=== PATIENT | male | born 1945 | race Caucasian/White ===

== ENCOUNTER 2016-03-11 06:30 | Inpatient (IN) | payer MEDICARE, BC ==
--- NOTE | ~2016-03-11 | CO ---
Unit #: [id number] #: [id number] Patient: PHIL SNELL [id number] [place] [id number] [facility]. [place], [place] [address] [id number] I MR#: [id number] NAME: PHIL SNELL ROOM: 333 Age: 70 Sex: M Admission Date: 03/11/2016 : 1945 Attending Physician: Caroline Amador M.D. Primary Care Physician: Guillaume Mancilla M.D. Consultation Date: 03/11/2016 CONSULTATION REPORT JOB NOTE: VERIFY DOS. REASON FOR CONSULTATION Abnormal TSH, abnormal thyroid function test. HISTORY OF PRESENT ILLNESS This is a 70-year-old male with history of multiple medical problems including paroxysmal atrial fibrillation, coronary artery disease plus CABG, chronic kidney disease, left below-knee amputation. The patient had femoral tibial artery bypass in 12/2015 at [facility]. His postoperative course was complicated by the respiratory failure requiring intubation and mechanical ventilation. He eventually was discharged secondary to very large decubitus ulcers. He finally underwent the left below-knee amputation and eventually transferred to the [facility] only 2 to 3 days ago. He has presented to the emergency room with the change in mental status and confusion. On his labs, he was found to have the TSH level of 37. According to the medical records, the patient at some point was taking 150 mcg of levothyroxine daily which was increased to 200 mcg at some point. On his current medication list from [facility], shows that he is on levothyroxine 200 mcg daily, but it is not known that when this dose was changed. The patient is unable to provide further history. PAST MEDICAL HISTORY See HPI. CURRENT MEDICATIONS List from [facility] is reviewed and the patient is on Synthroid 200 mcg daily. ALLERGIES To sulfa and Zetia. FAMILY HISTORY Coronary artery disease and diabetes. REVIEW OF SYSTEMS Completed. Please see HPI. Otherwise, unremarkable. PHYSICAL EXAMINATION GENERAL: He is comfortable, in no acute distress. VITAL SIGNS: He is afebrile. Blood pressure is 140/73, his pulse is 83. HEENT: Pupils are equally reactive to light. NECK: He has a trach in place. Unit #: [id number] #: [id number] Patient: PHIL SNELL CHEST: Decreased air entry. CVS: Normal sinus rhythm. ABDOMEN: Obese. Bowel sounds positive. EXTREMITIES: He has left BKA. DIAGNOSTIC STUDIES LABORATORY RESULTS: His TSH is 37.9. ASSESSMENT 1. Primary hypothyroidism. 2. History of coronary artery disease plus coronary artery bypass grafting. 3. History of paroxysmal atrial fibrillation. 4. Sacral decubitus. PLAN I am going to increase the levothyroxine dose to 225 mcg daily and we will recheck the labs in 4 to 6 weeks to further adjust the medication and the dose. Thank you again for consultation. Dictated by... Katerin Buenrostro/rachel TD: 03/11/2016 20:50 JOB #: [id number] CONSULTATION REPORT X Yun Dominguez MD X CONSULTATION REPORT
--- NOTE | ~2016-03-11 | TOC ---
Unit #: [id number] #: [id number] Patient: PHIL SNELL [id number] [address] [address] [id number] I MR#: [id number] NAME: PHIL SNELL ROOM: 55 Age: 70 Sex: M Admission Date: 03/11/2016 : 1945 Attending Physician: Enmanuel Mcgowan M.D. Primary Care Physician: Guillaume Mancilla M.D. TRANSFER OF CARE SUMMARY PRINCIPAL DIAGNOSES 1. Stage IV sacral decubitus ulcer, status post debridement x2 and subsequent wound VAC placement. 2. Toxic metabolic encephalopathy, multifactorial. 3. Acute kidney injury on chronic kidney disease stage 3 with baseline creatinine of 1.3. 4. Acute on chronic hypoxic hypercapnic respiratory failure, maintained on 3 L of oxygen per nasal cannula continuously. 5. Acute on chronic diastolic congestive heart failure, ejection fraction I believe 55%. 6. Subdural hydroma. 7. Severe hypothyroidism with thyroid stimulating hormone of 47, most recent thyroid stimulating hormone down to 26. 8. Acute on chronic anemia. 9. Severe protein malnutrition. 10. Diabetes mellitus type 2. 11. Peripheral arterial disease. 12. Hypernatremia. 13. Hypertension. 14. Pseudomonas urinary tract infection, status post treatment. 15. Nonsustained ventricular tachycardia. 16. Chronic immobility. 17. Obesity. 18. Obstructive sleep apnea, noncompliant with CPAP. 19. History of left lower extremity deep venous thrombosis. 20. Paroxysmal atrial fibrillation. 21. Supratherapeutic international normalized ratio, now resolved. 22. Coronary artery disease. 23. Benign prostatic hypertrophy. 24. Right foot decubitus ulcer. CONSULTANTS 1. Dr. Sim, Vascular Surgery. 2. Dr. Dominguez, Endocrinology. 3. Dr. Howell, LSA. 4. Dr. Morales, Cardiology. 5. Dr. Watts, Neurology. 6. Dr. Ramos, Pulmonology. 7. Dr. Sanderson, Nephrology. PROCEDURES 1. Wide sacral debridement and diverting colostomy on March 13, 2016. 2. Debridement of large necrotic sacral decubitus ulcer down to sacrum with mild necrosis and additional fatty necrosis on March 25, 2016. Unit #: [id number] #: [id number] Patient: PHIL SNELL 3. CT of the head without contrast on March 11, 2016 with subdural fluid collections over the right and left frontal parietal convexities. No focal abnormalities. 4. CT of the head without contrast on March 12, 2106, with no interval change. 5. Multiple followup chest x-rays demonstrating cardiomegaly and some pleural thickening on the right. CLINICAL HISTORY AND HOSPITAL COURSE Mr. Snell is a 70-year-old male with multiple chronic medical conditions, who was sent from rehab due to increasing confusion. In the emergency department, the patient was found to have a large sacral decubitus ulcer which had been ongoing in addition to a right foot decubitus ulcer. In the emergency department, the patient was found to have a hemoglobin of 8.4 and a creatinine of 1.4. INR was elevated at 7.6. The patient was subsequently admitted. In regard to patient's supratherapeutic INR, he was given vitamin K and INR normalized. He has remained off Coumadin. In regard to patient's large sacral decubitus ulcer, LSA was consulted. Wound swabs ultimately revealed Pseudomonas aeruginosa and patient has completed treatment. The patient underwent debridement and diverting colostomy on March 13, but unfortunately had worsening of the wound despite aggressive wound care and underwent second debridement on March 25. The wound itself has continually appeared progressively necrotic and patient had wound VAC placed on March 27, 2016 and is currently being followed by wound care. Please see below. Preoperatively, patient was seen by cardiology for evaluation. He had clinically appeared stable initially but subsequently developed some significant pulmonary edema consistent with an acute on chronic diastolic heart failure. He was placed on diuretics. Renal function also suffered as a result and Dr. Sanderson was consulted. Following patient's initial surgery, he did require mechanical ventilation for several days for which Dr. Ramos was consulted. Fortunately, the patient has been removed from the ventilator. I will note he did have a tracheostomy prior to the surgery which was removed but unfortunately has not required repeat trach placement. Respiratory status had returned to baseline which is 3 L of oxygen per nasal cannula continuously. His diastolic congestive heart failure is resolved and renal function has also returned to normal. The patient has had progressive significant decline functionally and mentally since his second surgery. He remains persistently delirious, has minimal oral intake, and has significant protein malnutrition both before and after surgery. His wound has also become increasingly necrotic. I have discussed this with the patient's on several occasions and I think patient would best be served by hospice given the extensive large necrotic appearance of his wounds and his multiple associated chronic conditions. is currently discussing with family. Currently, waiting decision per family. The patient also had significant uncontrolled hypothyroidism and he has been placed on supplemental. He needs a TSH in six weeks if plan is aggressive care. The patient was also seen by vascular surgery given he recently had a left hlurw-ncb-qzes amputation, seen by Dr. Sim but there are no plans for further treatment and/or evaluation at this time, just local wound care. Unit #: [id number] #: [id number] Patient: PHIL SNELL [facility] course will be dictated as an addendum; however, I will note patient's prognosis is very poor. Dictated by... Hyun Craig M.D. JACINTA/bob TD: 03/31/2016 09:13 JOB #: [id number] TRANSFER OF CARE SUMMARY X Hyun Craig MD TRANSFER OF CARE SUMMARY
--- NOTE | ~2016-03-11 | FU ---
[facility] Nutrition Therapy DATE: 04/07/16 Patient: PHIL CHANNING Physician: COTY Address: [address] [facility] [address] Room/Bed: [address] [place] [address], Zip: [place] [address] Admit Date: 03/11/16 Date of : [birth year] Height: 6 1 Weight: 275 125.1 NUTRITION MONITORING/FOLLOW-UP: Reason: PT SEEN FOR FOLLOW-UP DX: AMS, DECUBITUS Anthropometrics: 6'1", WT: 275# (125 KG), BMI: 36.3 Labs: GLU: 135, BUN: 69, CREAT: 1.7, CA+:8.1, GFR: 42.6, K+:5.5 Meds: NACL, NOVOLOG, PROTONIX, SYNTHROID, ZOFRAN, FERROUS GLUCONATE I&O's: 1929/2725, 1 BM NOTED Skin: STAGE IV SACRAL WOUND-WOUND VAC IN PLACE Estimated Nutrition Needs: INCREASED NUTRIENT NEEDS 2' NECROTIC WOUND NOTED Assessment: CHART REVIEWED AND EVENTS NOTED. PT SEEN FOR FOLLOW-UP. PT ASLEEP AT TIME OF VISIT. RD SPOKE TO FAMILY AND RN. FAMILY REPORT PT ATE 100% BREAKFAST THIS AM. RN REPORTS PT'S PO INTAKE AND APPETITE HAS BEEN "GOOD" PAST SEVERAL DAYS. FAMILY ADD THAT PT LIKES THE MAGIC CUPS. RD ENCOURAGED ADEQUATE KCAL, PROTEIN AND FLUID INTAKE, PT AGREED. FAMILY REPORTED NO DIET QUESTIONS AT THIS TIME. PER MD NOTES, PROGNOSIS CONTINUES TO BE POOR. Dx: INCREASED NUTRIENT NEEDS R/T CURRENT CONDITION AEB NECROTIC WOUND NOTED Intervention: 1. CC+HH DIET 2. MAGIC CUP TID W/MEALS 3. VITAMIN C 500 MG BID + 220 MG ZINC X 10 DAYS (ORAL) Monitoring, Evaluation and Goals: GOALS MET 1. PO INTAKE; PROMOTE >50% OF MEALS AND SUPPLEMENTS 2. SKIN; PROMOTE WOUND HEALING 3. LABS; WNL MONITOR: -PO INTAKE/APPETITE -SUPPLEMENT INTAKE -WEIGHTS -SKIN HEALING Recommendations: 1. ORDER 500 MG VITAMIN C BID + 220 MG ZINC X 10 DAYS TO PROMOTE WOUND HEALING [facility] Nutrition Therapy DATE: 04/07/16 Patient: PHIL SNELL Physician: COTY Address: [address] [facility] 86 Room/Bed: [address] [place] [address], Zip: [place] [address] Admit Date: 03/11/16 Date of : [birth year] Height: 6 1 Weight: 275 125.1 2. CONTINUE TO ENCOURAGE ADEQUATE KCAL, PROTEIN AND FLUID INTAKE RD WILL F/U PER PROTOCOL PT IS MOD/SEVERELY COMPROMISED Respectfully, YUDELKA GAR MS, RD, LD [facility] and Nutritional Services [facility] cc: client file
--- NOTE | ~2016-03-11 | FU ---
[facility] Nutrition Therapy DATE: 03/14/16 Patient: PHIL SNELL Physician: COTY Address: [address] Room/Bed: [address], Zip: [place] [address] Admit Date: 03/11/16 Date of : [birth year] Height: 6 1 Weight: 294 133.5 NUTRITION MONITORING/FOLLOW-UP: Reason: NPO status in ICU/ follow up Anthropometrics: Ht: 6'1" Adm wt: 133.5 kg BMI: 38.8 Wt 2/3: 133.5 kg Labs: Gluc 131 BUN 32 Creat 1.5 Ca++ 7.8 Alb 1.7 Mg++ 1.5 Accuchecks 120 GFR 49.2 BNP 4812 Meds: Protonix, synthroid (IV), novolog, D5%, versed, fentanyl, zofran, furosemide, levaquin (IV), ferrous gluconate I&O's: 2351/419, last BM 03/13 Skin: Trach stoma New ostomy stoma LLQ Decubitus ulcer left and right buttock Edema: Generalized BUE/ BLE Pitting right foot Estimated Nutrition Needs: 6695-5560 kcals (12-15 kcals/kg ABW) 125-167 grams protein (1.5-2.0 grams/kg IBW) Assessment: Chart reviewed, events noted. Pt's trach was removed, and he is now intubated in the ICU. Pt's POD#1 colostomy placement/ formation due to his sacral decubitus ulcer. Wean trial will likely be attempted today. Per MD note, if the pt does not wean, will need to place a DHT and start enteral nutrition. Please note the pt has significant increased protein needs for wound healing. RD will provide enteral nutrition recommendations below. RD previously assessed the pt on 3A and ordered Glucerna supplements, as he was consuming ~30-40% of meals. RD will continue to follow. Dx: Inadequate oral intake RT inability to consume nutrition PO AEB intubated, NPO status. Intervention: 1. Enteral nutrition if the pt remains intubated 2. Resume diet if the pt is extubated Monitoring, Evaluation and Goals: 1. Enteral nutrition; provide minimum 80% of the pt's nutrient needs [facility] Nutrition Therapy DATE: 03/14/16 Patient: PHIL SNELL Physician: COTY Address: [address] Room/Bed: [address], Zip: [place] Admit Date: 03/11/16 Date of : [birth year] Height: 6 1 Weight: 294 133.5 2. Labs; WNL 3. Weight; prevent unintentional weight loss 4. Skin; promote healing 5. GI; promote regular GI function Recommendations: 1. If the pt remains intubated, obtain enteral access and initiate enteral nutrition with Glucerna 1.5 @ 20 mL/hr +30 mL Prostat BID. Increase by 10 mL q 8 hrs as tolerated to goal of 50 mL/hr + 30 mL Prostat BID to provide: 2000 kcals/ 129 grams protein/ 911 mL free H20 Recommend 180 mL free H20 flushes q 4 hrs or per MD orders (Pt was previously on a 2000 mL fluid restriction) 2. If the pt is extubated, recommend COMPRESSION MOLDING MACHINE OPERATOR evaluation to determine if the pt can safely tolerate PO intake. Advance diet per COMPRESSION MOLDING MACHINE OPERATOR recommendations + heart healthy/ consistent carbohydrate restrictions. Please note, the pt was previously on a fluid restriction per MD orders. Status: Pt is at moderate-severe nutritional risk. Respectfully, ERICH SKINNER RD, LD Food and Nutritional Services [facility] cc: client file
--- NOTE | ~2016-03-11 | CR72 ---
[facility] A Service of [facility] & [facility] RADIOLOGY TEXT RESULTS PATIENT: PHIL SNELL LOCATION: [address] : [birth year] UNIT #: [id number] AGE: [address]: Hyun Craig MD SEX: M ORDER DR: [id number] [facility] [address] [facility]. [place], [place] [address] [id number] I MR#: [id number] Acc #: [id number] NAME: PHIL SNELL : 1945 SEX: M STUDY DATE/TIME: 03/18/2016 3:21 UNIT: [facility] ROOM: [facility] STUDY DESCRIPTION: CR Chest Single View Portable Attending Physician: Hyun Craig M.D. Ordering Physician: Sherry aRmos M.D. Primary Care Physician: Guillaume Mancilla M.D. MEDICAL IMAGING REPORT This report is preliminary unless electronic signature is present EXAM Portable chest 03/18 INDICATIONS Respiratory failure. FINDINGS AP portable chest is compared with 03/17/2016. Endotracheal tube appears to be near the thoracic inlet level. Consider advancing the tube about 3 cm. There is a persistent small right pleural effusion which may be minimally larger. There is some continued infiltrate in the right dgm-gd-hpsmd lung. The left lung is nearly completely clear except some atelectasis behind the heart. No pneumothorax. Right arm PICC remains in the right axillary vein. Dictated by... Fede Watson Jr., M.D. THIS IS AN ELECTRONICALLY VERIFIED REPORT Fede Watson Jr., M.D. at 03/18/2016 12:31 PM SKYE/camila TD: 03/18/2016 08:16 JOB #: [id number] MEDICAL IMAGING REPORT COPY
--- NOTE | ~2016-03-11 | CT71 ---
[facility] A Service of [facility] & [facility] RADIOLOGY TEXT RESULTS PATIENT: PHIL SNELL LOCATION: [facility] : [birth year] UNIT #: [id number] AGE: [address]: Darrin Espinoza MD SEX: M ORDER DR: [id number] [facility] [address] [place], [place] [address] [id number] MR#: [id number] Acc #: [id number] NAME: PHIL SNELL : 1945 SEX: M STUDY DATE/TIME: 03/11/2016 7:38 UNIT: [facility] ROOM: STUDY DESCRIPTION: CT Head Wo Contrast Attending Physician: Darrin Espinoza M.D. Ordering Physician: Darrin Espinoza M.D. Primary Care Physician: Guillaume Mancilla M.D. MEDICAL IMAGING REPORT This report is preliminary unless electronic signature is present EXAM CT brain without contrast media HISTORY Increased confusion and shortness of breath this morning. History of coronary artery disease, hypertension, diabetes and prior bypass. TECHNIQUE Transaxial imaging of the brain was performed without contrast media. This CT exam was performed with one or more of the following radiation dose reduction techniques: automatic exposure control, adjustment of mA and/or kV according to patient size, and iterative reconstruction. COMPARISON Head CT dated January 02, 2016 FINDINGS The patient has fluid collections over both the right and left cerebral convexities primarily in the frontal regions. This is present on the last scan. It has not changed. The lateral ventricles appear smaller and there continues to be effacement of the cortical sulci over both the right and left cerebral hemispheres. I do not see any other mass lesions or mass effect. There is no hemorrhage or edema. The patient does have atherosclerotic disease in the vertebral arteries and carotid siphons bilaterally. CONCLUSION Subdural fluid collections over both the right and left frontoparietal convexities. These are present on the patient's study of 01/01/2016 and have been present in the past. There is however evidence of sulcal effacement and the lateral ventricles have decreased in size from the last study suggesting there is some mass effect present. No other focal STS. [facility] A Service of [facility] & [facility] RADIOLOGY TEXT RESULTS PATIENT: PHIL SNELL LOCATION: [facility] : [birth year] UNIT #: [id number] AGE: [address]: Darrin Espinoza MD SEX: M ORDER DR: abnormalities are identified within the brain or surrounding structures. Incidental note is made of chronic ethmoid sinus disease on the left. Dictated by... Phil Griffin M.D. THIS IS AN ELECTRONICALLY VERIFIED REPORT Phil Griffin M.D. at 03/11/2016 4:15 PM Melia TD: 03/11/2016 11:16 JOB #: [id number] MEDICAL IMAGING REPORT COPY
--- NOTE | ~2016-03-11 | DS ---
Unit #: [id number] #: [id number] Patient: PHIL SNELL [id number] [address] [place], [place] [address] [id number] MR#: [id number] NAME: PHIL SNELL ROOM: 239 Age: 70 Sex: M Admission Date: 03/11/2016 : 1945 Discharge Date: 04/10/2016 Attending Physician: Hyun Craig M.D. Primary Care Physician: Guillaume Mancilla M.D. DISCHARGE SUMMARY ADDENDUM ADDITIONAL DISCHARGE DIAGNOSES 1. Enterococcus bacteremia. Currently on antibiotic therapy. 2. Yeast urinary tract infection. 3. Persistent delirium. 4. Chronic kidney disease, stage 3, baseline creatinine approximately 1.5. 5. Severe protein malnutrition. Last prealbumin 6 on 04/08/2016. HOSPITAL COURSE Since last dictation, the patient clinically really has not had any change in status. I personally reviewed his wound on 04/07/2016 and it appears to be increasing in size and only has about 50% granulation. He is having increasing necrotic skin on the periphery and this likely will extend to the rectum. Discussions regarding replacement of wound VAC and doing repeated daily dressings was discussed with the patient's , who does not want to put him through that pain and, thus, he has been placed back on the wound VAC. The patient's protein status also remains significantly poor and I have told the that I do not think this wound will ever heal. She states, however, she wants to keep with the wound VAC and aggressive care of this wound. The patient has been stable since identification of the enterococcus bacteremia and completed a two-week course of antibiotics as outlined below. The patient did have some mild leukocytosis and was found to have yeast in his urine. I placed him on Diflucan which we will treat for one week. I will exchange his Rogel today prior to transfer to [place]. Continued discussions with family regarding goals of care and at this point they continue to want the patient full code and want all aggressive measures for the wound, which is very high risk for osteomyelitis and honestly is most likely the source of his bacteremia. The patient's long-term prognosis is poor. Please note again, the patient has a history of paroxysmal atrial fibrillation, but remained at this facility over a month and has remained in normal sinus rhythm. He has also had bleeding from the wound, requiring transfusion. I am not going to reinitiate Coumadin at this time. I am also not going to reinitiate aspirin. He has been on SCDs only for DVT prophylaxis. Unit #: [id number] #: [id number] Patient: PHIL SNELL DISCHARGE CONDITION Chronically ill. DISPOSITION Transfer to [facility] in [place]. DISCHARGE MEDICATIONS 1. Combivent nebulizer treatments 3 ml q.4 h. p.r.n. shortness of breath. 2. Tylenol 650 mg p.o. q.6 h. p.r.n. fever. 3. Neurontin 300 mg p.o. t.i.d. 4. Diflucan 100 mg p.o. daily, to stop after dose on 04/13/2016. 5. Norvasc 5 mg daily. 6. Metoprolol tartrate 25 mg b.i.d. 7. Lasix 20 mg b.i.d. 8. NovoLog medium dose sliding scale with meals. 9. Santyl ointment topically daily at 6 a.m. on the patient's right foot. 10. Orazinc 220 mg daily. 11. Florastor 250 mg b.i.d. 12. Frankenmuth 10/325 mg 1 tablet q.8 h. 13. Protonix 40 mg daily. 14. Levothyroxine 225 mcg p.o. daily. 15. Ascorbic acid 500 mg b.i.d. 16. Ampicillin 2 g IV q.6 h. to stop after doses on 04/14/2016. DISCHARGE INSTRUCTIONS 1. The patient will continue Accu-Cheks morning and evening with associated sliding scale. 2. The patient is essentially immobile, hence his sacral wound, but he can attempt therapy. 3. His current wound VAC is being changed every two days at this facility, and further wound orders per attending physician at [facility]. 4. The patient's current diet is regular, given his significant protein malnutrition with associated Ensure shakes. FOLLOWUP 1. The patient need follow-up TSH in six weeks, given he had significant hypothyroidism upon presentation. 2. Continue to follow up wound at facility. Time spent on discharge was 33 minutes. Dictated by... Hyun Craig M.D. JACINTA/inge TD: 04/10/2016 08:40 JOB #: [id number] Unit #: [id number] #: [id number] Patient: PHIL SNELL DISCHARGE SUMMARY X Hyun Craig MD X DISCHARGE SUMMARY
--- NOTE | ~2016-03-11 | CR72 ---
[facility] A Service of [facility] & [facility] RADIOLOGY TEXT RESULTS PATIENT: PHIL SNELL LOCATION: [address]-19 : [birth year] UNIT #: [id number] AGE: [address]: Hyun Craig MD SEX: M ORDER DR: [id number] [facility] [address] [facility]. [place], [place] [address] [id number] I MR#: [id number] Acc #: [id number] NAME: PHIL SNELL : 1945 SEX: M STUDY DATE/TIME: 03/14/2016 5:40 UNIT: [facility] ROOM: [facility] STUDY DESCRIPTION: CR Chest Single View Portable Attending Physician: Hyun Craig M.D. Ordering Physician: Sherry Ramos M.D. Primary Care Physician: Guillaume Mancilla M.D. MEDICAL IMAGING REPORT This report is preliminary unless electronic signature is present EXAM Portable chest x-ray 03/14/2016 HISTORY Intubation. Right pleural effusion. FINDINGS AP radiographs of the chest are presented. Comparison 03/13/2016. The endotracheal tube terminates approximately 6.3 cm above the sophia at the T2 vertebral body inferior endplate level. Slightly more cephalad than on prior examination. For placement in mid thoracic trachea, it could be advanced about 2 cm and reassessed radiographically. Status post median sternotomy. Stable cardiac silhouette. No significant change in appearance of the lungs. Pulmonary vascular prominence suggesting vascular congestion. Interstitial and airspace densities bilaterally more pronounced in the mwh-ht-pieow lung zones with small right pleural effusion. The appearance favors pulmonary edema. Components of pneumonia not excluded. No pneumothorax. IMPRESSION 1. No significant change in appearance of the lungs. Underlying pulmonary vascular congestion with associated interstitial and airspace densities, predominantly in perihilar and qxl-ai-wrojk lung zones bilaterally and symmetrically. Appearance favors pulmonary edema probably of cardiogenic etiology. Components of pneumonia not excluded. Small right pleural effusion. 2. Endotracheal tube terminates about 6.3 cm above the sophia. Slightly more cephalad than on prior examination. For placement in mid thoracic trachea, it could be advanced about 2 cm and reassessed radiographically. [facility] A Service of [facility] & [facility] RADIOLOGY TEXT RESULTS PATIENT: PHIL SNELL [facility] UNIT #: [id number] AGE: [address]: Hyun Craig MD SEX: M ORDER DR: Dictated by... Phil Kraft M.D. THIS IS AN ELECTRONICALLY VERIFIED REPORT Phil Kraft M.D. at 03/14/2016 4:34 PM Roge TD: 03/14/2016 08:57 JOB #: [id number] MEDICAL IMAGING REPORT COPY
--- NOTE | ~2016-03-11 | FU ---
[facility] Nutrition Therapy DATE: 03/21/16 Patient: PHIL SNELL Physician: COTY Address: [address] Room/Bed: [address] [place] [address], Zip: [place] [address] Admit Date: 03/11/16 Date of : [birth year] Height: 6 1 Weight: 276 125.5 NUTRITION MONITORING/FOLLOW-UP: Reason: PT SEEN FOR FOLLOW-UP DX: AMS, DECUBITUS Anthropometrics: 6'1", WT: 276# (125 KG), BMI: 36.4 -ADMIT WEIGHT: 292# (133 KG) Labs: GLU: 235, BUN: 56, CREAT: 1.6, ALB: 2.1, GFR: 45.6, NA+:150 Meds: PROTONIX, SYNTHROID, ZOFRAN, FERROUS GLUCONATE I&O's: 1705/9998 Skin: SACRAL DECUBITUS ULCER; (R) FOOT/LOWER LEG UNSTAGEABLE PRESSURE ULCER EDEMA: BILATERAL HANDS/ARMS GENERALIZED EDEMA; TORSO GENERALIZED EDEMA Estimated Nutrition Needs: [id number] KCAL 125-167 G PRO Assessment: CHART REVIEWED AND EVENTS NOTED. PT SEEN FOR FOLLOW-UP. PT NON-VERBAL/SLEEPY/LETHARGIC AT TIME OF VISIT. RD ATTEMPTED TO SPEAK TO PT. PT HAD LUNCH TRAY AT BEDSIDE-TRAY HAS NOT BEEN TOUCHED. PER RN AND CHART, DHT REMOVED THIS AM, WIDE AREA NETWORK ADMINISTRATOR DEEDMED PT APPROPRIATE FOR DIET ADVANCEMENT-MECHANICAL SOFT + THIN LIQUIDS + [address] ATTEMPTED TO ENCOURAGE PO INTAKE. RD TO CONTINUE TO FOLLOW. OF NOTE, TISHA GLUCERNA SHAKES WERE ORDERED ON 03/12/16. RD WILL RE-ORDER Dx: INADEQUATE NUTRIENT INTAKE R/T CURRENT CONDITION AEB LUNCH TRAY HAS NOT BEEN TOUCHED. Intervention: 1. MECHANICAL SOFT + THIN LIQUIDS + 6 SMALL MEALS + CC+HH 2. TISHA GLUCERNA SHAKES BID Monitoring, Evaluation and Goals: GOALS NOT MET 1. PO INTAKE; PROVIDE AND CONSUME ADEQUATE NUTRITION W/NO C/O N/V/D (PO>50%) 2. SKIN; PROMOTE SKIN HEALING 3. LABS; WNL 4. GI; PROMOTE REGULAR GI FUNCTION MONITOR: -PO INTAKE/APPETITE -SUPPLEMENT INTAKE -WEIGHTS [facility] Nutrition Therapy DATE: 03/21/16 Patient: PHIL SNELL Physician: COTY Address: [address] Room/Bed: [address] [place] [address], Zip: [place] [address] Admit Date: 03/11/16 Date of : [birth year] Height: 6 1 Weight: 276 125.5 Recommendations: 1. ORDER CHOCOLATE GLUCERNA SHAKES BID W/MEALS (PREVIOUSLY ORDERED) 2. APPRECIATE FAMILY AND STAFF TO ENCOURAGE ADEQUATE KCAL, PROTEIN AND FLUID INTAKE -PROVIDE ASSISTANCE W/ORDERING MEALS AND PO INTAKE 3. IF PT UNABLE TO TOLERATE PO INTAKE, CONSULT RD FOR RECOMMENDATIONS RD WILL F/U PER PROTOCOL PT IS MODERATELY COMPROMISED Respectfully, YUDELKA GAR MS, RD, LD Food and Nutritional Services [facility] cc: client file
--- NOTE | ~2016-03-11 | CR72 ---
[facility] A Service of [facility] & [facility] RADIOLOGY TEXT RESULTS PATIENT: PHIL SNELL [address] [birth year] UNIT #: [id number] AGE: [address]: Hyun Craig MD SEX: M ORDER DR: [id number] [facility] [address] [facility]. [place], [place] [address] [id number] I MR#: [id number] Acc #: [id number] NAME: PHIL SNELL : 1945 SEX: M STUDY DATE/TIME: 03/19/2016 2:30 UNIT: [facility] ROOM: [facility] STUDY DESCRIPTION: CR Chest Single View Portable Attending Physician: Hyun Craig M.D. Ordering Physician: Sherry Ramos M.D. Primary Care Physician: Guillaume Mancilla M.D. MEDICAL IMAGING REPORT This report is preliminary unless electronic signature is present EXAM Frontal chest 03/19/2016 INDICATION Ventilator patient, respiratory failure, confusion, short of air, congestion, symptoms 9 days, hypertension. TECHNIQUE Frontal chest compared with 03/18/2016. FINDINGS Postop changes of median sternotomy are present. There is an enteric tube present and the tip can be followed to the distal esophageal level but no further due to collimation of the image and technical factors. Cardiac silhouette enlarged but stable. Vascular congestion and mild interstitial edema suspected. There is a right-sided effusion with compressive atelectasis or pneumonia in the right lung base. No pneumothorax. No new opacities on the left. Fractured sternotomy wire unchanged. IMPRESSION 1. Enteric tube tip can be followed to the distal esophageal level but no further. Correlate with tube function. 2. No significant change in the appearance of the chest compared to 03/18/2016 for technical factors. 3. Not mentioned above, there is a right-sided PICC line terminating in the region of the axillary vein also unchanged. Dictated by... Juancho Stratton M.D. THIS IS AN ELECTRONICALLY VERIFIED REPORT Juancho Stratton M.D. at 03/19/2016 9:58 PM [facility] A Service of [facility] & [facility] RADIOLOGY TEXT RESULTS PATIENT: PHIL SNELL LOCATION: [facility]3-19 : [birth year] UNIT #: [id number] AGE: [address]: Hyun Craig MD SEX: M ORDER DR: BRIAN/lacie TD: 03/19/2016 06:20 JOB #: [id number] MEDICAL IMAGING REPORT COPY
--- NOTE | ~2016-03-11 | CR72 ---
[facility] A Service of [facility] & [facility] RADIOLOGY TEXT RESULTS PATIENT: PHIL SNELL LOCATION: [address]-19 : [birth year] UNIT #: [id number] AGE: [address]: Hyun Craig MD SEX: M ORDER DR: [id number] [facility] [address] [facility]. [place], [place] [address] [id number] I MR#: [id number] Acc #: [id number] NAME: PHIL SNELL : 1945 SEX: M STUDY DATE/TIME: 03/16/2016 5:41 UNIT: [facility] ROOM: [facility] STUDY DESCRIPTION: CR Chest Single View Portable Attending Physician: Hyun Craig M.D. Ordering Physician: Sherry Ramos M.D. Primary Care Physician: Guillaume Mancilla M.D. MEDICAL IMAGING REPORT This report is preliminary unless electronic signature is present EXAM Portable chest INDICATIONS Confusion and shortness of breath since March 11, 2016. FINDINGS Endotracheal tube is present. This terminates about the level of the clavicles. Catheter could be advanced about 2-3 cm. Exam is degraded by patient positioning as the costophrenic angles are excluded from the radiograph. The patient does have cardiomegaly and vascular congestion, which I think actually appeared improved when compared to yesterday's study. There are also bilateral pleural effusions right greater than left, which are probably not significantly changed. Again full assessment is limited due to patient positioning. Dense right basilar consolidation is unchanged. Dictated by... Kitty Edwards M.D. THIS IS AN ELECTRONICALLY VERIFIED REPORT Kitty Edwards M.D. at 03/17/2016 4:42 PM AFF/to TD: 03/16/2016 15:09 JOB #: [id number] MEDICAL IMAGING REPORT COPY
--- NOTE | ~2016-03-11 | DS ---
Unit #: [id number] #: [id number] Patient: PHIL SNELL [id number] [place] [id number] [facility]. [place], [place] [address] [id number] I MR#: [id number] NAME: PHIL SNELL ROOM: 239 Age: 70 Sex: M Admission Date: 03/11/2016 : 1945 Discharge Date: 04/11/2016 Attending Physician: Hyun Craig M.D. Primary Care Physician: Guillaume Mancilla M.D. DISCHARGE SUMMARY REVISED REPORT ADDENDUM HOSPITAL COURSE Patient was not transferred to hospital on the given they no longer had a bed and this continued to be the case on April 11. Patient began to spike fevers and was developing hyperkalemia secondary to tissue . Clinically he has declined rather rapidly as April 11 has continued. His breathing is much more shallow and he appears much more pale. I have discussed with the patient's initially this morning and subsequently with a son later this afternoon extensively regarding his significantly poor prognosis. I have also informed them of lack of acceptance to long-term acute care due to the fact the patient is actively dying and unfortunately this cannot be stopped. At this point, after greater than 90 minutes in discussion today, family has opted for comfort measures only and [facility] consult. They do not wish to have some medication discontinued, namely his blood pressure medications and I will hold these but I will continue vital signs and medications will be held when he becomes hypotensive. I have discontinued all other oral unnecessary medications and I am initiating comfort measures. Antibiotics can be discontinued and the patient is currently a DNR. He will be transferred to inpatient hospice unit when bed is available. His appears to be rather imminent within the next hours to a few days. DISCHARGE CONDITION Actively dying. DISCHARHE STATUS Transfer to inpatient hospice care. DISCHARGE MEDICATIONS 1. Diflucan 100 mg p.o. daily if patient is able to take p.o. per family request. Last dose would be April 13, 2016. 2. Metoprolol tartrate 25 mg p.o. q.12 h. This will be discontinued if patient is unable to swallow or blood pressure becomes less than 100. 3. Dilaudid 1 mg IV q.1 h. p.r.n. for pain. 4. Ativan 1 mg IV q.1 h. p.r.n. for anxiety. 5. Robinul 0.2 mg IV q.1 h. p.r.n. for respiratory secretions. DISCHARGE INSTRUCTIONS 1. Patient can eat whatever diet he so wishes if he wants. 2. The wound VAC will remain in place until transfer to inpatient Unit #: [id number] #: [id number] Patient: PHIL SNELL hospice unit and there are no plans for further dressing changes beyond an initial packing when he arrives at the inpatient hospice unit. 3. Will not titrate oxygen above his current 3 L which is his chronic oxygen requirement. Patient again will transfer when a bed is available and medically stable. Time spent on discharge today greater than 90 minutes. Dictated by... Hyun Craig M.D. JACINTA/ruddy TD: 04/11/2016 18:09 JOB #: [id number] DISCHARGE SUMMARY X Hyun Craig MD DISCHARGE SUMMARY
--- NOTE | ~2016-03-11 | FU ---
[facility] Nutrition Therapy DATE: 04/08/16 Patient: PHIL SNELL Physician: COTY Address: [address] Room/Bed: [address] [place] [address], Zip: [place] [address] Admit Date: 03/11/16 Date of : 45 Height: 6 1 Weight: 275 125.1 NUTRITION MONITORING/FOLLOW-UP: Reason: Consult re: Address high protein diet, at least 100 g per day See initial RD assessment and multiple follow-up notes (last f/u yesterday, 04/07 Diet: High calorie high protein as of today with Ensure ordered Assessment: RD provided both verbal and written diet education on high calorie/high protein diet with the following handouts: -High calorie/high protein MNT -High calorie/high protein recipes -List of protein rich foods with grams and serving sizes Patient's showed good understanding and motivation for diet education Recommendations: 1. RD ordered to change oral supplement to magic cup TID (any flavor) per patient preference, continue HC/HP diet. [place] 100 g protein per day per MD. 2. RD provided oral and written diet education as stated above. Status: Moderate nutrition risk Respectfully, Mariza Soria RD, LD Food and Nutritional Services [facility] cc: client file
--- NOTE | ~2016-03-11 | CO ---
Unit #: [id number] #: [id number] Patient: PHIL SNELL [id number] [facility] [address] [facility]. [place], [place] [address] [id number] I MR#: [id number] NAME: PHIL SNELL ROOM: [facility] Age: 70 Sex: M Admission Date: 03/11/2016 : 1945 Attending Physician: Hyun Craig M.D. Primary Care Physician: Guillaume Mancilla M.D. Requesting Physician: Caroline Amador M.D. Consultation Date: 03/12/2016 CONSULTATION REPORT REASON FOR CONSULTATION Subdural fluid, abnormal CT. PATIENT IDENTIFICATION This is a 70-year-old right-handed male evaluated in room 333 at [facility]. SOURCE OF INFORMATION Patient's as well the medical record. HISTORY OF PRESENT ILLNESS This is a 70-year-old right-handed male with the past medical history of chronic anticoagulation for DVT and paroxysmal atrial fibrillation, recent admission to [facility], history of sacral decubitus ulcer, CAD, peripheral arterial disease, and other multiple medical comorbidities, who presented to [facility] with chief complaint of apparently of confusion; however, the patient's states the patient presented for wound debridement. She states that he has some mild confusion at baseline and has had no fluctuation from his baseline. Apparently, the patient was recently hospitalized at [facility] in December 2015 for femoral tibial artery bypass with grafting. He had a very complicated hospital course and developed acute hypoxemic and hypercapnic respiratory failure postoperatively. He required intubation. He had acute encephalopathy, sounds to be most likely toxic and metabolic but I do not have those details. He was discharged to [facility]. He developed a large decubitus ulcer. He underwent an MRI at [facility] that showed chronic bilateral subdural hygromas. Those records are as per the report. He developed left upper extremity DVT. He also has multiple wounds around his legs. He apparently underwent a left wkqni-iaz-pnsk amputation at some point within the last couple of months for those wounds. He was admitted to [facility] on this admission for sacral decubitus ulcer present on admission and unstageable and for possible debridement. He also has leukocytosis and anemia and supratherapeutic INR at 7.6. He received 10 mg of vitamin K in the ER. Neurology was asked to see as the CT is abnormal, done on 03/11/2016, showing subdural fluid collections over both the right and left frontoparietal convexes present on the patient's study of 01/01/2016 and have been present in the past; however, evidence of sulcal effacement and lateral ventricles have decreased in size from last study suggesting some possible mass effect present. No other focal abnormalities identified within the brain or surrounding structures with incidental note made of chronic ethmoid sinus disease on the left. Imaging reviewed and discussed with Dr. Watts. He reviewed personally at the time of consultation. On exam, the patient is at baseline per the patient's . Unit #: [id number] #: [id number] Patient: PHIL SNELL He is oriented to person, he is oriented to place. He can tell me that it is March 2015. He recognizes his at the bedside. He has some shortness of air but is oriented, grossly nonfocal, generally weak. He can name and identify and follow simple commands. PAST MEDICAL HISTORY 1. Recent admission to [facility] and then transfer to [facility] at the end of 2015 for complicated medical course. Please see above details in the HPI for further information. 2. Sacral decubitus ulcer. Again, that was present on admission. 3. Left upper extremity DVT. 4. Paroxysmal atrial fibrillation. 5. Chronic anticoagulation on warfarin. 6. CAD, status post coronary artery bypass grafting followed by Dr. Alejandra. 7. Diastolic dysfunction with unknown ejection fraction on admission. 8. Peripheral arterial disease, status post femoral tibial artery bypass graft as well as carotid endarterectomy. 9. Hypothyroidism. 10. Obstructive sleep apnea noncompliant with CPAP. 11. Hypertension. 12. BPH. 13. Diabetes. 14. History of right pneumothorax. 15. Left retroperitoneal hematoma. 16. Immobility. 17. Cervical laminectomy. 18. Septoplasty. 19. Cataract surgery. 20. Hand surgery. 21. Left kqllz-cag-amqs amputation. ALLERGIES 1. Sulfa. 2. Ezetimibe. MEDICATIONS Include: 1. Hydralazine. 2. Synthroid. 3. Protonix. 4. Lasix. 5. Iron. 6. Clindamycin. 7. DuoNeb. 8. Metoprolol. 9. Florastor. 10. Mucinex. 11. Neurontin. 12. Dulcolax. 13. Lortab. 14. Zofran. 15. Warfarin. FAMILY HISTORY Noncontributory. SOCIAL HISTORY Unit #: [id number] #: [id number] Patient: PHIL SNELL The patient presents here from rehab. He quit smoking years ago. No alcohol use or illicit drug use known. At baseline, per the , he is apparently alert and oriented x3 and has episodes of memory issues which is not unusual for him. REVIEW OF SYSTEMS A 12-point review of systems was attempted, pertinent positives are as discussed above. PHYSICAL EXAMINATION VITAL SIGNS: Temperature 97.4, pulse 90, respirations 20, blood pressure 108/61, oxygen saturation 98%. Height 6 feet 1 inch, weight 294 pounds. NEUROLOGIC: The patient is awake. He is mildly short of air. He is oriented to person and place. He is oriented to time. He recognizes his at the bedside. He follows simple commands. He has no right-left confusion, no finger agnosia, he is not aphasic or apraxic. He can name and identify and follow simple commands. He is generally weak and edematous. CRANIAL NERVES: Responds to threats in the primary and peripheral visual person. Eyes are conjugate without ptosis or nystagmus. Extraocular movements are intact. Sensation to face and scalp is intact. Strength of muscles of facial expression is intact. Hearing is intact to conversation. Tongue is midline. Uvula is midline. Palate elevation is normal. Head turning and shoulder shrug is unremarkable. Neck is supple. MOTOR: He has difficult assessment of tone but do not appear to see any abnormalities. He is very weak but generalized. He can lift his upper extremities off the bed but certainly cannot lift against resistance. His lower extremities he has difficulty lifting off the bed but he is bilaterally equal. 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 He has a left qdqra-jxy-csgj amputation so I am unable to assess there. SENSORY: Difficult assessment. He can differentiate soft touch and pinprick sensation in the upper extremities but has difficulty in the right lower extremity. Unable to assess left lower extremity. GAIT AND ROMBERG: Deferred. REFLEXES: Unable to elicit. Toes are equivocal on the right, unable to assess on the left. COORDINATION: Unremarkable in the upper extremities. No past pointing seen. DIAGNOSTIC STUDIES LABORATORY: Blood cultures preliminary no growth after 24 hours times 2 sets. PT 13.4, INR 1.3, PTT 39.6. White blood cell count 15.9, hemoglobin 7.5, hematocrit 23.8, platelet count 488. Sodium 138, potassium 5, chloride 105, CO2 is 24, glucose 144, BUN 32, creatinine 1.3, estimated GFR 58, calcium 8.1, AST 18, ALT 14, alkaline phosphatase 127. Cholesterol 200, triglycerides 149, LDL 141, HDL 29. PT 15.3, INR 1.4. Hemoglobin A1c 6. Other labs and diagnostic studies are as per chart and have been reviewed. Please note B12 is 1305 and folate is 9. IMAGING: CT head, please see above. IMPRESSION 1. Abnormal CT of the head with chronic subdural hygromas, questionable worsening. 2. Sacral decubitus ulcer present on admission. 3. Anemia. 4. Supratherapeutic INR. Unit #: [id number] #: [id number] Patient: PHIL SNELL 5. Left upper extremity DVT. 6. Coronary artery disease. 7. Hypertension. 8. Chronic kidney disease. 9. Altered mental status, suspect chronic. Patient is at his baseline. Nothing to suggest TIA or CVA. 10. Uncontrolled hypothyroidism. 11. Chronic immobility with left pxure-uqz-tadp amputation. PLAN We have reviewed records from [facility] regarding his past MR of the brain. There does not appear to be anything active. Dr. Watts has reviewed imaging and is not impressed that there is a significant worsening and at this time the patient is not a candidate for neurosurgical evaluation with active infection and sacral wound. He is going for debridement on this admission and has other comorbid issues. Possibly could be a worsening which is a concern but there is no active bleeding and no active issues. Dr. Watts discussed with the patient's and, again, this is likely old CSF. Will request CT to compare but because of his illness and other comorbidities he is not an interventional candidate at this time so we will observe. Compare CT imaging and go from there. Please call for any questions or issues. We thank you very much for allowing us to assist in the care of this patient. Dictated by... Arlen Barnett A.P.R.N. for Katerin Sanchez/gabriel TD: 03/13/2016 18:56 JOB #: [id number] CONSULTATION REPORT X Arlen Barnett APRN X CONSULTATION REPORT
--- NOTE | ~2016-03-11 | CR72 ---
[facility] A Service of [facility] & [facility] RADIOLOGY TEXT RESULTS PATIENT: PHIL SNELL LOCATION: [facility] 333-01 : 45 UNIT #: [id number] AGE: [address]: Hyun Craig MD SEX: M ORDER DR: [id number] [facility] [address] [facility]. [place], [place] [address] [id number] MR#: [id number] Acc #: [id number] NAME: PHIL SNELL : 1945 SEX: M STUDY DATE/TIME: 03/11/2016 6:20 UNIT: ART[facility] ROOM: STUDY DESCRIPTION: CR Chest Single View Portable Attending Physician: Darrin Espinoza M.D. Ordering Physician: Darrin Espinoza M.D. Primary Care Physician: Guillaume Mancilla M.D. MEDICAL IMAGING REPORT This report is preliminary unless electronic signature is present EXAM Portable chest. INDICATIONS Shortness of breath since this morning. FINDINGS Cardiomegaly and vascular congestion are noted. These are perhaps slightly improved when compared to the prior exam. There are small bilateral pleural effusions also probably stable when compared to the prior examination. There is elevation of the right hemidiaphragm with associated bronchovascular crowding and persistent left basilar atelectasis versus infiltrate. No pneumothorax is seen. Tracheostomy noted. Patient is status post median sternotomy with coronary artery bypass grafting. Dictated by... Kitty Edwards M.D. THIS IS AN ELECTRONICALLY VERIFIED REPORT Kitty Edwards M.D. at 03/12/2016 8:33 AM AFF/dj TD: 03/11/2016 08:29 JOB #: [id number] MEDICAL IMAGING REPORT COPY
--- NOTE | ~2016-03-11 | FU ---
[facility] Nutrition Therapy DATE: 03/17/16 Patient: PHIL SNELL Physician: COTY Address: [address] Room/Bed: [address], Zip: [place] [address] Admit Date: 03/11/16 Date of : [birth year] Height: 6 1 Weight: 293 133.1 NUTRITION MONITORING/FOLLOW-UP: Reason: Enteral nutrition consult Anthropometrics: Ht: 6'1" Adm wt: 133.5 kg BMI: 38.8 IBW: 83.6 kg Wt 03/17: 133.1 kg Labs: Cl- 112 Gluc 141 BUN 41 Creat 2.1 Alb 1.3 Phos 5.1 Accuchecks 147-173 GFR 33.4 Meds: Protonix, synthroid (IV), novolog, D5%, versed, fentanyl, zofran, levaquin (IV), ferrous gluconate, bumex I&O's: 1812/1034, last BM 03/16 (per RN report)- colostomy Skin: Unstageable pressure ulcer to lower right leg Large Sacral decubitus ulcer (noted previous assessment) Edema: Generalized- BUE/ BLE/ trunk/ hips/ abdomen/ BL hands Estimated Nutrition Needs: 9171-1104 kcals (12-15 kcals/kg ABW) 125-167 grams protein (1.5-2.0 grams/kg IBW) Assessment: Chart reviewed, events noted. Pt currently receiving enteral nutrition with Nepro @ 20 mL/hr (ordered per MD with goal of 40 mL/hr), as his renal function has been declining per labs/ RN report. Phos, BUN, creat are elevated. Pt had increased residuals of 250 cc per RN report. Nepro at 40 mL/hr will not meet the pt's increased protein needs for wound healing support. Please see recommendations below. Dx: Inadequate oral intake RT inability to consume nutrition PO AEB enteral nutrition being provided (not at goal rate). Intervention: 1. Nepro for enteral nutriiton (see recommendations below) Monitoring, Evaluation and Goals: GOALS ARE NOT BEING MET OR ARE IN PROGRESS 1. Enteral nutrition; provide 80% volume of nutrient needs x 24 hrs, tolerate 2. Labs; WNL: electrolytes, BUN, creat, glucose, GFR 3. Weight; prevent unintentional weight loss 4. Skin; promote healing, prevent further breakdown 5. GI; promote bowel regularity [facility] Nutrition Therapy DATE: 03/17/16 Patient: PHIL SNELL Physician: COTY Address: [address] Room/Bed: [address], Zip: [place] [address] Admit Date: 03/11/16 Date of : [birth year] Height: 6 1 Weight: 293 133.1 Recommendations: 1. Continue enteral nutrition per MD orders with Nepro. Recommend increasing Nepro by 10 mL q 8 hrs as tolerated to goal of 40 mL/hr + Prostat TID to meet the pt's increased protein needs for wound healing by providin kcals total/ 123 grams protein 701 mL free H20 Free H20 per MD orders 2. Monitor for residuals and symptoms of enteral intolerance per protocol. Status: Pt is at moderate-severe nutritional risk. Respectfully, ERICH SKINNER RD, LD Food and Nutritional Services [facility] cc: client file
--- NOTE | ~2016-03-11 | OR ---
Unit #: [id number] #: [id number] Patient: PHIL SNELL [id number] [facility]. [place], [place] [address] [id number] I MR#: [id number] NAME: PHIL SNELL ROOM: 551 Date of Procedure: 03/25/2016 Admission Date: 03/11/2016 Surgeon: Elbert Damian Jr., M.D. : 1945 Attending Physician: Hyun Craig M.D. Primary Care Physician: Guillaume Mancilla M.D. OPERATIVE REPORT INDICATIONS FOR PROCEDURE The patient is a 70-year-old white male with stormy course following vascular surgery. He has developed a large sacral decubitus. He has had a diverting colostomy with initial debridement of the decubitus and continues to have some necrotic tissue within it. It was felt this should be re-debrided with sharp excisional debridement. He is brought to the operating room at this time for this procedure. Informed consent has been obtained. PREOPERATIVE DIAGNOSIS Large necrotic sacral decubitus stage IV. POSTOPERATIVE DIAGNOSIS Large necrotic sacral decubitus stage IV, noting extension down to the sacrum itself with some mild necrosis and additional fatty necrosis. ANESTHESIA LMA with general. PROCEDURE PERFORMED Extensive sharp excisional debridement using #10 blade scalpel down to the periosteum with curettage of his sacral decubitus. DESCRIPTION OF PROCEDURE The patient was positioned in the supine position. After being anesthetized, he was placed in right lateral decubitus position, prepped and draped in routine fashion for debridement of sacral decubitus. Fragments of skin with necrotic fatty tissue were then removed around the area of the initial wound and additional tissue was removed with a #10-blade scalpel down to the periosteum of the sacrum and some necrotic muscle to the right of the midline was then debrided and removed sharply with a #10-blade scalpel. After this was completed, some additional fragments of tissue removed and using a curette, necrotic ligamentous tissue was removed from the sacrum along with some periosteum. After this was completed, hemostasis achieved with Bovie cautery. The wound was irrigated and again, the additional fragments of tissue removed where there was evidence of any necrotic tissue. After again obtaining hemostasis with the Bovie cautery as well as several iomvuz-ke-sqqeb 2-0 Vicryl stick ties, the wound was again irrigated and hemostasis again achieved with the Bovie cautery. The wound was then packed open with saline moist dry dressings. Sterile dressings were applied externally. Unit #: [id number] #: [id number] Patient: PHIL SNELL Estimated blood loss approximately 500 mL. The patient received approximately 2000 mL crystalloid solution during the procedure. Sponges and instruments counts were correct x3. No drains used. No complications. The patient was taken to the recovery room with stable vital signs in satisfactory condition. Dictated by... Elbert Damian Jr., M.D. JMB/rachel TD: 03/25/2016 22:35 JOB #: [id number] OPERATIVE REPORT X Elbert Damian MD X PROCEDURE OPERATIVE NOTE
--- NOTE | ~2016-03-11 | CR71 ---
[facility] A Service of [facility] / [facility] RADIOLOGY TEXT RESULTS PATIENT: PHIL SNELL LOCATION: [facility] : [birth year] UNIT #: [id number] AGE: [address]: Hyun Craig MD SEX: M ORDER DR: [id number] [id number] [facility]. [place], [place] [address] [id number] I MR#: [id number] Acc #: [id number] NAME: PHIL SNELL : 1945 SEX: M STUDY DATE/TIME: 03/13/2016 18:08 UNIT: [facility] ROOM: [facility] STUDY DESCRIPTION: CR Chest Single View Attending Physician: Hyun Craig M.D. Ordering Physician: Fede Howell M.D. Primary Care Physician: Guillaume Mancilla M.D. MEDICAL IMAGING REPORT This report is preliminary unless electronic signature is present EXAM Portable chest, 03/13/2016 INDICATIONS 70-year-old male with history of endotracheal intubation. COMPARISON 03/11/2016 FINDINGS Tracheostomy tube has been removed. There is a new endotracheal tube with tip in between the medial ends of the clavicles. Stable small right pleural effusion. Stable cardiomegaly. Decreased atelectasis in the right lung base. IMPRESSION Endotracheal tube in good position above the sophia. Decreased atelectasis in the right base. Small right pleural effusion is stable. Dictated by... Isiah Harris M.D. THIS IS AN ELECTRONICALLY VERIFIED REPORT Isiah Harris M.D. at 03/14/2016 7:50 AM LARRY/kenney TD: 03/13/2016 22:40 JOB #: [id number] MEDICAL IMAGING REPORT [facility] A Service [facility] RADIOLOGY TEXT RESULTS PATIENT: PHIL SNELL LOCATION: [facility] : 45 UNIT #: [id number] AGE: [address]: Hyun Craig MD SEX: M ORDER DR: COPY
--- NOTE | ~2016-03-11 | EKG ---
PATIENT: PHIL SNELL UNIT #: [id number] Ventricular Rate: 82 BPM Atrial Rate: 82 BPM P-R Interval: 198 ms QRS Duration: 158 ms Q-T Interval: 424 ms QTC Calculation(Bezet): 495 ms P Brick: 45 degrees Calculated R Brick: 103 degrees Calculated T Brick: 81 degrees Diagnosis Line: Normal sinus rhythm Diagnosis Line: Right bundle branch block Diagnosis Line: Abnormal ECG Diagnosis Line: When compared with ECG of 31-JAN-2009 01:32, Diagnosis Line: Premature atrial complexes are no longer Present Diagnosis Line: Vent. rate has increased BY 33 BPM Diagnosis Line: Minimal criteria for Inferior infarct are no Diagnosis Line: longer Present Diagnosis Line: Confirmed by MAYI VARGHESE MD ([id number]) on Diagnosis Line: 03/15/2016 1:02:36 PM INTERPRETING MD: HALIMA MCDOWELL
--- NOTE | ~2016-03-11 | CR72 ---
[facility] A Service of [facility] & [facility] RADIOLOGY TEXT RESULTS PATIENT: PHIL SNELL LOCATION: [facility] 239-01 : [birth year] UNIT #: [id number] AGE: [address]: Hyun Craig MD SEX: M ORDER DR: [id number] [place] [address] [place], [place] [address] [id number] I MR#: [id number] Acc #: [id number] NAME: PHIL SNELL : 1945 SEX: M STUDY DATE/TIME: 04/11/2016 14:09 UNIT: C2[facility] ROOM: 239 STUDY DESCRIPTION: CR Chest Single View Portable Attending Physician: Hyun Craig M.D. Ordering Physician: Hyun Craig M.D. Primary Care Physician: Guillaume Mancilla M.D. MEDICAL IMAGING REPORT This report is preliminary unless electronic signature is present EXAM Portable chest HISTORY Fever. Shortness of air. Congestion recurring today. COMPARISON STUDIES 03/18/2016. FINDINGS This AP portable view of the chest shows small right effusion. PIC catheter has its tip in the superior vena cava. There is mild interstitial prominence bilaterally. There is some on the previous study suggesting mild edema. There is elevation of the right hemidiaphragm. Sternal wires are present. Dictated by... Jone Baird M.D. THIS IS AN ELECTRONICALLY VERIFIED REPORT Jone Baird M.D. at 04/11/2016 10:06 PM FEL/pcl TD: 04/11/2016 20:37 JOB #: [id number] MEDICAL IMAGING REPORT COPY
--- NOTE | ~2016-03-11 | CR7 ---
[facility] A Service of [facility] & [facility] / [facility] RADIOLOGY TEXT RESULTS PATIENT: PHIL SNELL LOCATION: [address]19 : [birth year] UNIT #: [id number] AGE: [address]: Hyun Craig MD SEX: M ORDER DR: [id number] [facility] [address] [facility]. [place], [place] [address] [id number] I MR#: [id number] Acc #: [id number] NAME: PHIL SNELL : 1945 SEX: M STUDY DATE/TIME: 03/16/2016 9:56 UNIT: [facility] ROOM: [facility] STUDY DESCRIPTION: CR Abdomen Single AP View Attending Physician: Hyun Craig M.D. Ordering Physician: Elbert Damian Jr., M.D. Primary Care Physician: Guillaume Mancilla M.D. MEDICAL IMAGING REPORT This report is preliminary unless electronic signature is present EXAM KUB INDICATIONS Dobbhoff tube placement. FINDINGS Weighted enteric feeding tube is identified. This probably extends into the fundus of the stomach. Bowel gas pattern is unremarkable. Dictated by... Kitty Edwards M.D. THIS IS AN ELECTRONICALLY VERIFIED REPORT Kitty Edwards M.D. at 03/17/2016 4:42 PM AFF/psc TD: 03/16/2016 17:06 JOB #: [id number] MEDICAL IMAGING REPORT COPY
--- NOTE | ~2016-03-11 | CR72 ---
[facility] A Service of [facility] RADIOLOGY TEXT RESULTS PATIENT: PHIL SNELL [facility] UNIT #: [id number] AGE: [address]: Hyun Craig MD SEX: M ORDER DR: [id number] [facility] [address] [facility]. [place], [place] [address] [id number] I MR#: [id number] Acc #: [id number] NAME: PHIL SNELL : 1945 SEX: M STUDY DATE/TIME: 03/17/2016 11:18 UNIT: [facility] ROOM: [facility] STUDY DESCRIPTION: CR Chest Single View Portable Attending Physician: Hyun Craig M.D. Ordering Physician: Sherry Ramos M.D. Primary Care Physician: Guillaume Mancilla M.D. MEDICAL IMAGING REPORT This report is preliminary unless electronic signature is present EXAM Chest portable 03/17/2016 1118 hours HISTORY 70-year-old man with confusion and shortness of air since 03/11/2016. History of hypertension, atrial fibrillation and diabetes. COMPARISON 03/16/2016 FINDINGS Portable upright chest demonstrates stable endotracheal tube. Flexible feeding tube is in the fundus of the stomach. There is stable cardiomegaly with low lung volumes. There is pulmonary venous distension with stable bilateral lower lung densities. IMPRESSION 1. Satisfactory position of support equipment. 2. Stable cardiomegaly, pulmonary venous distension and basilar predominant interstitial changes. Probable small effusions right greater than left persist. Dictated by... Mary Turk M.D. THIS IS AN ELECTRONICALLY VERIFIED REPORT Mary Turk M.D. at 03/17/2016 2:31 PM KLAUDIA/milan TD: 03/17/2016 14:21 JOB #: [id number] MEDICAL IMAGING REPORT [facility] A Service of [facility] RADIOLOGY TEXT RESULTS PATIENT: PHIL SNELL [facility] 45 UNIT #: [id number] AGE: [address]: Hyun Craig MD SEX: M ORDER DR: ROSELIA
--- NOTE | ~2016-03-11 | FU ---
[facility] Nutrition Therapy DATE: 03/28/16 Patient: PHIL SNELL Physician: COTY Address: [address] Room/Bed: [address] [place] [address], [facility], Zip: [place] [address] Admit Date: 03/11/16 Date of : [birth year] Height: 6 1 Weight: 264 120.2 NUTRITION MONITORING/FOLLOW-UP: Reason: PT SEEN FOR FOLLOW-UP DX: AMS, DECUBITUS PER RN AND CHART, MD RECOMMENDS HOSPICE CARE BUT REFUSING AT THIS TIME. PLANS FOR HOSPICE RE-EVAL (PER MD NOTES). POOR PROGNOSIS NOTED. RD TO REMAIN AVAILABLE FOR ALTERNATIVE NUTRITION SUPPORT RECOMMENDATIONS. RD WILL F/U PER PROTOCOL Respectfully, YUDELKA GAR MS, RD, LD Food and Nutritional Services [facility] cc: client file
--- NOTE | ~2016-03-11 | CO ---
Unit #: [id number] #: [id number] Patient: PHIL SNELL [id number] [address] [place], [place] [address] [id number] I MR#: [id number] NAME: PHIL SNELL ROOM: [facility] Age: 70 Sex: M Admission Date: 03/11/2016 : 1945 Attending Physician: Hyun Craig M.D. Primary Care Physician: Guillaume Mancilla M.D. Consultation Date: 03/11/2016 CONSULTATION REPORT REASON FOR CONSULTATION Preoperative clearance. HISTORY OF PRESENT ILLNESS This is a 70-year-old white male, previously known to Dr. Alejandra with a past medical history of coronary artery disease, status post coronary artery bypass grafting x3, per Dr. Price on 07/24/2006 at [facility]. The patient had persistent atrial fibrillation following surgery and underwent a direct current cardioversion on 09/11/2006 with conversion to sinus rhythm. Additional past medical history includes obesity, obstructive sleep apnea, chronic diastolic congestive heart failure, and hypothyroidism. The patient had a right carotid endarterectomy on 01/21/2011. He was recently admitted to [facility] in 12/2015 for right femoral-tibial artery bypass with graft. Postoperatively, he developed acute respiratory failure and required intubation and mechanical ventilation. He ultimately had a trach placed. During that admission, he was treated for acute encephalopathy. He was discharged to [place] and developed a large sacral wound. 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 He was transferred from [facility] to [facility]. He was brought to the emergency department on 03/11/2016 with altered mental status and worsening sacral decubitus. His white blood cell count was elevated. INR was high at 7.6. A CT of the head revealed subdural fluid collections. Neurology was consulted. LSA was consulted for sacral wound debridement and Cardiology was asked to see the patient for preoperative clearance. His mental status has improved and he is able to answer some questions. His family is at the bedside to assist with providing information. The patient has not had any dizziness or syncope. There are no reports of chest pain or shortness of breath. However, he has been nearly bed-bound and requires significant assistance to get out of bed. He has really not been able to bear weight according to his family. There are no reports of fever or chills. He has not had any other significant complaints except for generalized weakness. His family has noticed that his extremities have been more swollen than normal. He is on scheduled diuretics that were recently started. PAST MEDICAL HISTORY 1. Recent admission to [facility] in 12/2015 for right femoral-tibial artery bypass with graft. Hospitalization complicated by acute hypoxic respiratory failure requiring intubation, mechanical ventilation, and tracheostomy. Acute encephalopathy. Large sacral wound developed. Unit #: [id number] #: [id number] Patient: PHIL SNELL 2. Remote left hirru-eaw-dqjj amputation on 01/31/2016. 3. 2D echocardiogram on 12/30/2015 revealed left ventricular ejection fraction of 50%. Severely dilated left atrium. No shunt. Mild mitral regurgitation. 4. Coronary artery disease, status post coronary artery bypass grafting x3 with left internal mammary artery to the LAD. Saphenous vein graft to the obtuse marginal and saphenous vein graft to the PDA on 07/24/[address] Price at [facility] and extensive lysis of adhesions and TMR completed. 5. Persistent atrial flutter, status post direct current cardioversion on 09/11/2006 with conversion to sinus rhythm. 6. Peripheral artery disease, status post right carotid endarterectomy on 01/21/2011. 7. Chronic diastolic congestive heart failure. 8. Hypothyroidism. 9. Remote DVT. 10. Obesity. 11. Obstructive sleep apnea. PAST SURGICAL HISTORY 1. Right femoral-tibial artery bypass with graft. 2. Tracheostomy. 3. Sacral wound debridement. 4. 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 5. Cardiac catheterization. 6. Coronary artery bypass grafting. 7. DC cardioversion. 8. Cervical laminectomy. 9. Nose surgery. 10. Right index finger surgery. HOME MEDICATIONS Hydralazine 25 mg p.o. t.i.d., Synthroid 200 mcg p.o. daily, Protonix 40 mg p.o. daily, Lasix 40 mg p.o. daily, Ferrex 150 Plus 1 capsule p.o. daily, Clindamycin 300 mg p.o. q.i.d., ipratropium 3 mL inhalation q.i.d., metoprolol tartrate 50 mg p.o. b.i.d., Florastor one capsule p.o. b.i.d., Mucinex 1 tablet p.o. b.i.d., Neurontin 100 mg p.o. q.h.s., Dulcolax 10 mg p.o. daily p.r.n. for constipation, Lortab 5/325 mg one tablet p.o. every 6 hours p.r.n. for pain, Zofran 8 mg p.o. every 8 hours p.r.n. for nausea, Coumadin 6 mg p.o. daily. ALLERGIES Sulfa and Ezetimibe. SOCIAL HISTORY The patient is currently residing in a rehab facility. He is a reformed smoker and quit years ago. There are no reports of alcohol or illicit drug use. FAMILY HISTORY Significant for heart disease. REVIEW OF SYSTEMS Ten point review of systems negative except for details as noted above in HPI. PHYSICAL EXAMINATION VITAL SIGNS: Temperature 97.5, pulse 83, blood pressure 141/73. Unit #: [id number] #: [id number] Patient: PHIL SNELL CONSTITUTIONAL: This is a 70-year-old white male, in no acute distress. SKIN: Warm and dry. NECK: Supple. No jugular vein distention. No hepatojugular reflux. Normal carotid upstrokes. No carotid bruits auscultated. HEART: S1 and S2. Regular rate and rhythm. No murmurs, rubs, or gallops. LUNGS: Bilateral breath sounds are diminished in the bases. Respirations are even and nonlabored. No rales, rhonchi, or wheezes. ABDOMEN: Soft, nontender, and nondistended. Positive bowel sounds auscultated x4 quadrants. No ascites noted. EXTREMITIES: Bilateral upper extremities have 2+ pitting edema. Right lower extremity has 1+ pitting edema. DP and PT pulse in the right lower extremity 1+. Capillary refill is less than 2 seconds. DIAGNOSTIC STUDIES LABORATORY RESULTS: White blood cell count 13.8, hemoglobin 8.4, hematocrit 26.7, platelets 539. Sodium 137, potassium 4.9, chloride 108, CO2 of 24, BUN 32, creatinine 1.4, glucose 147. Troponin 0.05 and 0.06. TSH 37.93. IMAGING STUDIES: Chest x-ray reveals cardiomegaly with vascular congestion and left atelectasis. CARDIOVASCULAR STUDIES: EKG reveals sinus rhythm with a right bundle-branch block, age undetermined. IMPRESSION 1. Altered mental status, improved. 2. Large sacral wound. 3. Possible pneumonia with left atelectasis. 4. Volume overload with acute on chronic diastolic congestive heart failure. 5. Protein deficiency. 6. Coronary artery disease with history of coronary artery bypass grafting in 2006. 7. Left ventricular ejection fraction of 50% in 12/2015. 8. History of persistent atrial flutter, status post direct current cardioversion, now sinus rhythm. 9. Remote deep vein thrombosis. 10. Remote right femoral-tibial artery bypass with graft and respiratory failure and tracheostomy. 11. Has supratherapeutic INR. 12. Uncontrolled hypothyroidism. 13. Anemia. PLAN 1. The patient presented to the hospital with altered mental status and worsening sacral decubitus. He was admitted and Surgery was consulted for debridement. 2. Cardiology was consulted for preoperative clearance. 3. The patient denies any chest pain, but is bed-bound. 4. There is evidence of significant edema on exam. Chest x-ray revealed some vascular congestion. We will give a dose of diuretics and repeat chemistry. 5. The patient is on Synthroid and needs dose adjustment due to an elevated TSH. 6. He will be continued on a lower dose of the beta-kale. I could consider nitrates for afterload reduction if blood pressure tolerates. Unit #: [id number] #: [id number] Patient: PHIL SNELL 7. The patient recently had a 2D echocardiogram in 12/2015 and this study does not need to be repeated. 8. Preoperative clearance is pending per Dr. Geiger. Dictated by... Magdalene Knox APRN for Tom Geiger M.D. CHRISTOS/rachel TD: 03/15/2016 22:31 JOB #: [id number] CONSULTATION REPORT X X CONSULTATION REPORT
--- NOTE | ~2016-03-11 | TOC ---
Unit #: [id number] #: [id number] Patient: PHIL SNELL [id number] [address] [place], [place] [address] [id number] I MR#: [id number] NAME: PHIL SNELL ROOM: 55 Age: 70 Sex: M Admission Date: 03/11/2016 : 1945 Attending Physician: Enmanuel Mcgowan M.D. Primary Care Physician: Guillaume Mancilla M.D. TRANSFER OF CARE SUMMARY The patient was treated more aggressively in regards to pain control. Patient had gone down for an I and D and noted inadequate pain control. I have scheduled hydrocodone 3 times a day and change the patient's IV pain medication to Dilaudid from morphine. The patient has been much more somnolent but does indicate that his pain is much better controlled. The patient had one of two blood cultures returned with gram-positive cocci in pairs and chains. Initially this was through to be a contaminate; however, did ultimately grow Enterococcus. The patient was initially started on vancomycin. Sensitivities reveal the organism is sensitive to ampicillin. Vancomycin was changed to ampicillin as a result. The patient spiked fevers overnight between April 01 and April 02, but has been afebrile April 03. I had continued discussions with the patient's spouse in regards to goals of care. It does remained consistent will all aggressive measures at this time. I have also discussed changing the patient's code status to DNR given his overall outlook. She states that she wishes to discuss this with her children and revisit the topic after that discussion. At this time, the patient's wound continues with local wound care and wound VAC. There are no plans for further debridement. Dictated by... Enmanuel Mcgowan M.D. TOMASZ/celsa TD: 04/04/2016 13:04 JOB #: [id number] TRANSFER OF CARE SUMMARY X Enmanuel Mcgowan MD X TRANSFER OF CARE SUMMARY
--- NOTE | ~2016-03-11 | CO ---
Unit #: [id number] #: [id number] Patient: PHIL SNELL [id number] [place] [id number] [facility]. [place], [place] [address] [id number] I MR#: [id number] NAME: PHIL SNELL ROOM: 333 Age: 70 Sex: M Admission Date: 03/11/2016 : 1945 Attending Physician: Hyun Craig M.D. Primary Care Physician: Guillaume Mancilla M.D. Consultation Date: 03/11/2016 CONSULTATION REPORT HISTORY Mr. Snell is a very unfortunate 70-year-old gentleman who has a significant number of co-morbid conditions. Most concerning has been atherosclerotic coronary artery disease and peripheral vascular disease, which resulted in a very prolonged hospitalization at [facility] dating back to December of 2015 and recently extended at [facility] rehab. He presented to the ER today with altered mental status and confusion, but that seems to have abated with evaluation here in the ER, and I have been asked to see him for a large persistent and necrotic sacral pressure sore. After evaluation of the patient's history and examination with the present, I discussed with her and the patient that he has a very large, probable stage 4 sacral pressure sore that has a large amount of exudate, eschar and necrotic tissue with undermining extending well beyond the edges of the wound. The distal aspect of the wound comes very close to the anus, and he will probably require a diverting colostomy, as well as an extensive debridement. However, on a full evaluation of the patient, he is profoundly coagulopathic with an INR of 7.6. He also has profound hypothyroidism with his TSH being 37.93, and he shows evidence of protein-caloric malnutrition. That is in addition to all his other co-morbid conditions. Before he could undergo further debridement and treatment of his wound, as well as placement of a diverting colostomy, he will need extensive pre-op optimization to include improved nutrition, cardiac clearance, correction of his coagulopathy, as well as his hypothyroidism, and he will need to be typed and crossed for packed red blood cells, because a debridement of this size will result in significant blood loss. PAST MEDICAL HISTORY Atherosclerotic coronary artery disease, paroxysmal atrial fibrillation, congestive heart failure, peripheral arterial disease status post left BKA, previous fem-pop bypass, obstructive sleep apnea, hypothyroidism, previous retroperitoneal hematoma, pneumothorax, hypertension, hyperlipidemia, benign prostatic hypertrophy, chronic kidney disease, immobility syndrome, reflux, acute respiratory failure requiring tracheostomy and prolonged mechanical ventilation, left upper extremity deep venous thrombosis, diabetes, cervical laminectomy, septoplasty, cataract surgery, hand surgery. ALLERGIES Sulfa and ezetimibe. HOME MEDICATIONS Hydralazine, Synthroid, Protonix, Lasix, iron, clindamycin, DuoNeb, Metoprolol, Florastor, Mucinex, Neurontin, Dulcolax, Lortab, Zofran and Unit #: [id number] #: [id number] Patient: PHIL SNELLadin. FAMILY HISTORY Heart disease and diabetes. SOCIAL HISTORY He is . His is very attentive and is at the bedside. He has currently been at rehab. As stated, he has had a prolonged hospitalization. He is a former smoker. Denies the use of alcohol. REVIEW OF SYSTEMS Noncontributory to this problem. CURRENT EXAMINATION VITAL SIGNS: Temperature is 97.8, pulse 85, respirations 16, blood pressure 166/78. GENERAL: He is awake and alert at this time and able to give appropriate answers. HEENT: Unremarkable. CARDIAC: Irregular rhythm, controlled rate. LUNGS: Clear. ABDOMEN: Soft. EXTREMITIES: Left BKA. BACK AND SACRAL AREA: Examination reveals a very large sacral pressure sore with nonviable tissue, undermining, skin ischemia and necrosis but no cellulitis or purulent drainage. The wound comes down within 2 cm to 3 cm of the anal verge. DIAGNOSTIC STUDIES LABORATORY: Chemistry - BUN 32, creatinine 1.4, sodium 137, potassium 4.9, chloride 108, CO2 24, calcium 8, albumin 1.9, total bili is 0.3. AST, ALT and alkaline phosphatase unremarkable. CK is 64. Troponin is pending. Serum iron is 15. Iron saturation is 10%. B12 is 1,305. Ferritin is 217, folate 9, transferrin 107. Free T4 is pending. TSH is 37.93. INR is 7.6 with a PT of 85.9. White count is 13,800 with normal differential, hemoglobin 8.4. Platelets are 539,000. Urinalysis shows 5-10 white cells. Culture is pending. IMAGING: CT of the head shows some chronic subdural fluid collections over both right and left frontoparietal areas. There is some possible mass effect but no other focal abnormalities. Chest x-ray - There does not appear to be any acute disease. ASSESSMENT AND PLAN A 70-year-old gentleman with sacral decubitus and other problems as discussed. Again, he needs pre-op optimization prior to an extensive sacral debridement and diverting colostomy formation. I have discussed this with Dr. Amador and have consulted endocrinology, cardiology. Neurology has already seen the patient. We will ask nutrition to see the patient for supplementation. It will take several days to get this patient optimized for surgery. Dictated by... Fede Howell M.D. Unit #: [id number] #: [id number] Patient: CHANNINGPHIL GARCIA/tiffany TD: 03/12/2016 08:54 JOB #: [id number] CONSULTATION REPORT X Fede Howell MD CONSULTATION REPORT
--- NOTE | ~2016-03-11 | CO ---
Unit #: [id number] #: [id number] Patient: PHIL SNELL [id number] [address] [address] [id number] I MR#: [id number] NAME: PHIL SNELL ROOM: 333 Age: 70 Sex: M Admission Date: 03/11/2016 : 1945 Attending Physician: Caroline Amador M.D. Primary Care Physician: Guillaume Mancilla M.D. Consultation Date: 03/11/2016 CONSULTATION REPORT REASON FOR CONSULTATION Right lower extremity wounds. HISTORY OF PRESENT ILLNESS Mr. Snell is a 70-year-old male well known to us. He underwent on 12/14/2015 a right femoral to posterior tibial bypass with graft by Dr. Kwesi sim. He was later admitted to [facility] for rehabilitation. He developed ischemia of his left lower extremity and underwent a left below-knee amputation on 01/31/2016. We followed along peripherally during his prolonged admission at [facility] and during that admission, noted that he developed some pressure ulcers on the lateral aspect of his right leg as he had a tendency to lay his lateral leg on the bed causing pressure. Ultimately, we had recommended for him to wear a Edgar splint to keep pressure off that side. PAST MEDICAL HISTORY 1. Peripheral artery disease. 2. Chronic anticoagulation. 3. Atrial fibrillation. 4. Diabetes. 5. Left below-knee amputation. SOCIAL HISTORY The patient has been residing at [facility]. Denies smoking, alcohol, or drug use. ALLERGIES Sulfa and Ezetimibe. MEDICATIONS List hydralazine 25 mg p.o. t.i.d., Synthroid 200 mcg p.o. daily, Protonix 40 mg p.o. daily, Lasix 40 mg p.o. daily, Ferrex 150 plus capsule one daily, clindamycin 300 mg p.o. q.i.d., ipratropium/albuterol sulfate 3 mL inhalation q.i.d., metoprolol 50 mg p.o. q.12 hours, Florastor one cap b.i.d., Mucinex extended-release one tab b.i.d., Neurontin 100 mg p.o. at bedtime, bisacodyl 10 mg per rectum daily, [place] 5/325 one every 6 hours p.r.n. pain, Zofran 8 mg p.o. every 8 hours nausea, Coumadin 6 mg p.o. daily. FAMILY HISTORY Noncontributory. REVIEW OF SYSTEMS Unit #: [id number] #: [id number] Patient: PHIL SNELL Includes a sacral decubitus and wounds to right lower extremity. Otherwise, 12-point review of systems is negative. PHYSICAL EXAMINATION VITAL SIGNS: Includes temperature 97.5, heart rate 83, respirations 27, blood pressure 141/73. GENERAL APPEARANCE: Obese, well-developed, well-nourished male, in no acute distress. Answers most questions appropriately. is present at bedside to assist in answering questions. HEENT: Normocephalic. Pupils are equal, round, and reactive to light. NECK: Supple, nontender. No carotid bruits noted on auscultation. CARDIAC: Regular rate and rhythm. No murmurs heard. LUNGS: Sounds diminished bilaterally. The patient is on nasal cannula oxygenation at 3 L. ABDOMEN: Positive bowel sounds, large rounded abdomen. VASCULAR: Palpable radial pulses bilaterally, signals of right DP/PT. INTEGUMENTARY: Skin is warm and dry. The patient with wound on in the left lateral stump site about 1 cm x 1 cm. The wound is not deep. Surrounding tissue is somewhat erythematous. Right lower extremity with healing wound on the upper posterior portion of calf measuring approximately 2 cm, now 1.5 cm. Wound is closed. No drainage noted. There is a small healing wound in the mid calf region of the right foot with the wound measuring approximately 4 cm x 1.5 cm. The wound surface is unopened. No drainage noted. There is a small wound on the right lateral malleolus measuring 1.5 x 1.5 cm approximately. This wounds is also closed with no redness or drainage noted and finally there is a small purplish discoloration of the right fifth toe. Overall, the surrounding tissue surrounding these wounds appears to be pink indicating wound healing from prior. NEUROLOGIC: The patient is awake and alert. Generalized weakness. DIAGNOSTIC STUDIES LABORATORY RESULTS: Indicate BUN 32, creatinine 1.4, sodium 137, potassium 4.9, chloride 108, CO2 of 24. Of note INR value 7.6. Hemoglobin 8.4, hematocrit 26.7, WBC 13.8, platelets 539. ASSESSMENT AND PLAN 1. Peripheral artery disease with wounds to right lower extremity. Impression, the patient is status post right leg revascularization. The patient has good quality signals in the foot and the wounds that he has appeared to be resolving. Recommend continued therapies to reduce pressure such as rotating the foot and use of Edgar splint. The patient has a newly-developed wound on his left lateral stump site, again recommend therapies to reduce pressure. We will begin saline wet-to-dry dressings. 2. Supratherapeutic Coumadin level/Coumadin toxicity, INR 7.67 on admit. The patient is admitted to undergo diverting colostomy and sacral decubitus surgery. When appropriate with surgery, the patient will need long-term anticoagulation to maintain bypass graft patency. 3. Recommend that patient to follow up as an outpatient with Dr. Sim in office and will capture right leg graft surveillance as well as ABIs at that time. Dictated by... Obie Alvarez APRN for Kwesi Sim M.D. /[facility] Unit #: [id number] #: [id number] Patient: PHIL SNELL TD: 03/11/2016 21:37 JOB #: [id number] CONSULTATION REPORT X X CONSULTATION REPORT
--- NOTE | ~2016-03-11 | CO ---
Unit #: [id number] #: [id number] Patient: PHIL SNELL [id number] [address] [place], [place] [address] [id number] I MR#: [id number] NAME: PHIL SNELL ROOM: CICCU3 Age: 70 Sex: M Admission Date: 03/11/2016 : 1945 Attending Physician: Hyun Craig M.D. Primary Care Physician: Guillaume Mancilla M.D. Consultation Date: 03/13/2016 CONSULTATION REPORT REASON FOR CONSULTATION Respiratory failure. Critical management. CHIEF COMPLAINT Right sacral decubitus ulcer. HISTORY OF PRESENT ILLNESS This patient basically is a 70-year-old male with a past medical history of DVT, atrial fibrillation, diastolic dysfunction, peripheral arterial disease, end-stage renal disease, was on dialysis, obstructive sleep apnea, tracheostomy, multiple medical disorders, who presented with the complaint of confusion. The patient was found to be septic because of his sacral decubitus ulcer and underwent diverting colostomy and is postop respiratory failure. I am seeing the patient at bedside, currently intubated, sedated. PAST MEDICAL HISTORY As described above. SOCIAL HISTORY The patient quit smoking years ago. No alcohol. No drug abuse. FAMILY HISTORY Coronary artery disease, diabetes, hypertension. ALLERGIES Sulfa, Zetia. Allergies have been reviewed. MEDICATION As per MAR, has been reviewed. REVIEW OF SYSTEMS Unobtainable. PHYSICAL EXAMINATION GENERAL APPEARANCE: Sedated, intubated on ventilator. VITAL SIGNS: Temperature 98. Pulse 67. Respiration 12. Blood pressure 120/70. NEUROLOGIC: Sedated, intubated. CARDIOVASCULAR: S1+S2. RESPIRATORY: Bilateral air entry. Bilateral mild rhonchi. GASTROINTESTINAL: Nontender. Soft. Bowel sounds positive. EXTREMITIES: Positive edema. SKIN: Positive wound in the sacral area. Unit #: [id number] #: [id number] Patient: PHIL SNELL DIAGNOSTIC STUDIES Labs and imaging have been reviewed. ASSESSMENT AND PLAN Acute postop hypoxic respiratory failure, acute exacerbation of congestive heart failure, sacral decubitus ulcer, anemia, atrial fibrillation, history of DVT, chronic coagulopathy, diabetes mellitus, hypothyroidism, history of obstructive sleep apnea status post tracheostomy in the past. Trach has been removed. Multiple medical disorder. The plan is to continue the patient on ventilator support, continue IV antibiotics, continue bronchodilator, GI and DVT prophylaxis and monitor hemoglobin and hematocrit. We will do a CPAP trial in the morning and this has been explained to the patient's . CRITICAL CARE TIME 45 minutes in direct critical care of this patient. Dictated by... Katerin Wang TD: 03/18/2016 10:26 JOB #: [id number] CONSULTATION REPORT X Sherry Ramos MD CONSULTATION REPORT
--- NOTE | ~2016-03-11 | CR72 ---
[facility] A Service of [facility] RADIOLOGY TEXT RESULTS PATIENT: PHIL SNELL LOCATION: [place] [address] : [birth year] UNIT #: [id number] AGE: [address]: Hyun Craig MD SEX: M ORDER DR: [id number] [facility] [address]. [place], [place] [address] [id number] I MR#: [id number] Acc #: [id number] NAME: PHIL SNELL : 1945 SEX: M STUDY DATE/TIME: 03/20/2016 5:22 UNIT: [facility] ROOM: [facility] STUDY DESCRIPTION: CR Chest Single View Portable Attending Physician: Hyun Craig M.D. Ordering Physician: Sherry Ramos M.D. Primary Care Physician: Guillaume Mancilla M.D. MEDICAL IMAGING REPORT This report is preliminary unless electronic signature is present EXAM Portable chest HISTORY Confusion, shortness of air, congestion since 03/11/2016. COMPARISON 03/19/2016. FINDINGS Portable view of the chest demonstrates weighted tip of a flexible feeding tube just below the GE junction. Further advancement may be recommended for more optimal positioning. Patient is slightly rotated to the right. No change in cardiopulmonary status. Continued right-sided volume loss with elevation of the right hemidiaphragm and probable right pleural effusion, right basilar atelectasis and/or infiltrate. Prominent pulmonary vascularity suggests pulmonary vascular congestion. Stable cardiomegaly. Patient is post median sternotomy. No visible pneumothorax. There is an apparent right upper extremity PICC line terminating in the region of the axillary vein, unchanged. Dictated by... Junaid Harris M.D. THIS IS AN ELECTRONICALLY VERIFIED REPORT Junaid Harris M.D. at 03/20/2016 3:06 PM GOLDEN/lacie TD: 03/20/2016 08:06 JOB #: [id number] MEDICAL IMAGING REPORT [facility] A Service of [facility] RADIOLOGY TEXT RESULTS PATIENT: PHIL SNELL LOCATION: [facility] [id number] : [birth year] UNIT #: [id number] AGE: [address]: Hyun Craig MD SEX: M ORDER DR: COPY
--- NOTE | ~2016-03-11 | CO ---
Unit #: [id number] #: [id number] Patient: PHIL SNELL [id number] [address] [place], [place] [address] [id number] I MR#: [id number] NAME: PHIL SNELL ROOM: CIC3 Age: 70 Sex: M Admission Date: 03/11/2016 : 1945 Attending Physician: Hyun Craig M.D. Primary Care Physician: Guillaume Mancilla M.D. Consultation Date: 03/15/2016 CONSULTATION REPORT REASON FOR CONSULTATION Renal insufficiency. Thank you very much for asking us to see this patient again. HISTORY OF PRESENT ILLNESS Mr. Phil Snell is a 70-year-old male, who has had multiple medical problems in the past as well outlined in the past medical history, who presented to the hospital again from rehab with large sacral decubitus ulcers and he underwent debridement and converting colostomy on 03/13/2016. The patient was still intubated on the vent. We were asked to see the patient secondary to decreased urine output. The patient has a history of acute renal failure requiring dialysis at [facility] and at [place] in December and January. Although successfully taken off dialysis and appears to have a creatinine baseline now in level of around 1.5 range. The patient currently is intubated, decreased response, is at bedside. PAST MEDICAL HISTORY History of atherosclerotic coronary artery disease, history of severe peripheral vascular disease status post left BKA, history of atrial fib, history of obstructive sleep apnea, history of hypothyroidism, history of hypertension, history of chronic kidney disease stage 3 with acute renal failure as mentioned above, history of DVTs in the past left upper extremity, history of diabetes mellitus, history of COPD, history of subdural hematoma. ALLERGIES Include sulfa and ezetimibe. SOCIAL HISTORY He is . Previous smoker, none now. No alcohol. FAMILY HISTORY Noncontributory. CURRENT MEDICATIONS Includes iron pill, Combivent inhaler, Zofran, Lopressor 50 mg IV q.8, fentanyl, Versed, insulin, Lovenox 60 mg IV q.12, Synthroid 100 mcg IV daily, Protonix 40 mg a day, and Lasix 80 mg q.8 which was just started by me earlier today he was on 60 b.i.d. which was started earlier this morning. PHYSICAL EXAMINATION VITAL SIGNS: T-max 99.5, pulse 70 to 100, blood pressure 99 to 120 over Unit #: [id number] #: [id number] Patient: PHIL SNELL 30s to 50s. HEENT: He is normocephalic and atraumatic. His pupils appear to be equal, reactive to light. He is orally intubated. NECK: Bandage over from previous trach. CARDIAC: He is without a rub. No S3 or S4. LUNGS: Bilateral rhonchi. ABDOMEN: Obese, bowel sounds positive, nontender, soft. He has an ostomy present. EXTREMITIES: Now, he has positive body edema, there is positive thigh edema. Some trace lower extremity swelling. SKIN: No acute rashes except for obviously large decubitus was debrided, although I did not examine that. NEURO: Decreased response now secondary to medication. : Rogel catheter is in place. DIAGNOSTIC STUDIES LABORATORY RESULTS: Last ABG showed a pH of 7.23, pCO2 of 60, pO2 of 76 on 40%. Sodium is 142, potassium 4.3, chloride is 113, bicarb is 22, BUN of 30, creatinine 1.6, glucose of 84. Calcium 7.3, magnesium is 1.4 and replace. TSH was 26.7, although Synthroid was started. UA shows specific gravity of 1.015, 10 to 25 rbc's, 50 to 100 wbc's, no protein, no bacteria, but culture is pending. Hemoglobin down 7.4, white count 06485, platelets 390,000. IMAGING STUDIES: Chest x-ray shows bilateral effusions. ASSESSMENT AND PLAN 1. Acute on chronic kidney disease, stage 3. The patient's renal function, although not much worse, urine output is dropped off, he does appear to have a lot of third space fluid, chest x-ray, etc. we will go ahead and switch him over to Bumex drip of 1 mg an hour and try to diurese him some, shaping him off the vent. We will follow his electrolytes, bicarb, potassium, etc. We will check in the morning and we will continue to follow. Certainly, he could worsen before he gets better. 2. Status post sacral decubitus, surgery with diverting colostomy. 3. Respiratory failure, on vent. 4. History of diabetes mellitus. 5. History of heart disease, as mentioned above. 6. History of deep vein thrombosis in the past on high-dose Lovenox and if his renal function worsens, they will need to be adjusted. Dictated by.Katerin Corrigan/rachel TD: 03/16/2016 01:35 JOB #: [id number] Unit #: [id number] #: [id number] Patient: PHIL SNELL CONSULTATION REPORT X Kathya Sanderson MD X CONSULTATION REPORT
--- NOTE | ~2016-03-11 | FU ---
[facility] Nutrition Therapy DATE: 04/02/16 Patient: PHIL SNELL Physician: COTY Address: [address] [facility] [address] Room/Bed: [address] [place] [address], Zip: [place] [address] Admit Date: 03/11/16 Date of : [birth year] Height: 6 1 Weight: 264 120 NUTRITION MONITORING/FOLLOW-UP: Reason: F/U Anthropometrics: 73", 264#, BMI 34.8 30# wt loss since admission Labs: BUN 51, Cr 1.5, Ca++ 7.6, Alb 1.6 Meds: Bumex, [place], Dilaudid, Haldol, PPI, Synthroid, Zofran, FeSO4, Abx Skin: Large sacral/back wound-wound vac in place Assessment: Seen for f/u. EN d/c. Receiving Carb consistent/Heart healthy diet. Pt lethargic/mental status varies-slightly improved today per nsg. Hospice following but pt's spouse has refused. Nonhealing/necrotic wound to sacrum/back. Spoke w/pt's this afternoon. Reports pt's PO intake has significantly improved past 3 days. Consuming 75-100% of his meals. Not fond of Glucerna/Ensure supplements. requesting to try Magic cups. Encouraged high protein foods @ every meal-verbalized understanding. Dx: Increased nutrient needs r/t current condition AEB necrotic wound. Intervention: 1. Carb consistent/Heart healthy diet 2. Will d/c Glucerna and add Magic cups TID Monitoring, Evaluation and Goals: 1. Consume >75% of meals 2. Promote wound healing Recommendations: 1. Recommend adding 500 mg Vitamin C and 220 mg Zinc x 10 days Status: Moderate-Severe nutrition risk Respectfully, ANNELISE SANTANA RD, LD [facility] Nutrition Therapy DATE: 04/02/16 Patient: PHIL SNELL Physician: COTY Address: [address] [facility] 86 Room/Bed: [address] [place] [address], Zip: [place] [address] Admit Date: 03/11/16 Date of : [birth year] Height: 6 1 Weight: 264 120 Food and Nutritional Services [facility] cc: client file
--- NOTE | ~2016-03-11 | OR ---
Unit #: [id number] #: [id number] Patient: PHIL SNELL [id number] [facility] [address] [facility]. [place], [place] [address] [id number] I MR#: [id number] NAME: PHIL SNELL ROOM: [facility] Date of Procedure: 03/13/2016 Admission Date: 03/11/2016 Surgeon: Fede Howell M.D. : 1945 Attending Physician: Hyun Craig M.D. Primary Care Physician: Guillaume Mancilla M.D. OPERATIVE REPORT PREOPERATIVE DIAGNOSIS Necrotic chronic sacral pressure sore. POSTOPERATIVE DIAGNOSIS Necrotic chronic sacral pressure sore. PROCEDURE PERFORMED Wide sacral debridement and diverting colostomy formation. ANESTHESIA General endotracheal anesthesia. ESTIMATED BLOOD LOSS 400 mL. INDICATIONS FOR PROCEDURE Mr. Snell is a very ill 70-year-old gentleman, who is in rehab after a prolonged hospitalization at [facility]. He presented with altered mental status and was brought to the ER here at [place]. After stabilization, he was noted on examination to have a very large necrotic sacral wound. After preoperative optimization and clearance, I discussed with his and the patient debridement to optimize wound bed preparation for healing, optimization of nutrition, and diverting colostomy to avoid chronic stool contamination because of the proximity of the wound to the anus. They were agreeable to proceed. DESCRIPTION OF PROCEDURE The patient was transported from his hospital room to the operating room and after induction of general endotracheal anesthesia, he was placed in the prone position on the operating room table with appropriate padding, chest rolls, and security. After being prepped and draped in the usual sterile fashion, a 10-blade was used to make an incision circumferentially around all of the affected tissue. Bovie was used to dissect the sacral tissue of both buttocks, sacrum, and down to the level of the sacrum to include muscle of the gluteus yang and medius. Once all the necrotic and tissue was dissected off, we obtained hemostasis and then packed the wound with Kerlix soaked in Betadine. #1 Vicryl stay sutures were placed to hold the dressing in place. ABD pads and perforated tape were used to keep the dressing in position. The patient was then placed on the second operating room table in the supine position from his prone position, and the first operating room table removed. After that, he was appropriately positioned and secured. His abdominal wall was prepped and Unit #: [id number] #: [id number] Patient: PHIL SNELL. A transverse incision at the level of the umbilicus was made. I dissected down through the soft tissue exposing the rectus sheath. Rectus sheath was opened, rectus muscle divided, posterior rectus sheath opened, and I entered the peritoneal cavity. The sigmoid colon was identified, mobilized, and brought up into the wound. Once it was adequately mobilized, it was divided with a SHELBIE stapler. The distal colon was reduced back in the peritoneal cavity, and the proximal colon was brought up and matured as a colostomy. After it was matured, the skin incision was closed with 3-0 Vicryl subdermal suture. The abdominal wall was cleaned with saline and alcohol and allowed to dry. A Tegaderm was placed over the incision to protect it from any stool contamination and then an ostomy bag was placed around the stoma. Sponges and needle counts were correct x3. The patient tolerated the procedure well and was transported to recovery in stable condition. Findings and postoperative expectations were discussed with his . Dictated by... Katerin Christian/rachel TD: 03/14/2016 13:59 JOB #: [id number] OPERATIVE REPORT X Fede Howell MD X PROCEDURE OPERATIVE NOTE
--- NOTE | ~2016-03-11 | CT71 ---
[facility] A Service of [facility] RADIOLOGY TEXT RESULTS PATIENT: PHIL SNELL LOCATION: [facility] 333- : 45 UNIT #: [id number] AGE: [address]: Hyun Craig MD SEX: M ORDER DR: [id number] [facility] [address] [facility]. [place], [place] [address] [id number] I MR#: [id number] Acc #: [id number] NAME: PHIL SNELL : 1945 SEX: M STUDY DATE/TIME: 03/12/2016 17:51 UNIT: [address] ROOM: [facility] STUDY DESCRIPTION: CT Head Wo Contrast Attending Physician: Hyun Craig M.D. Ordering Physician: Hyun Craig M.D. Primary Care Physician: Guillaume Mancilla M.D. MEDICAL IMAGING REPORT This report is preliminary unless electronic signature is present EXAM CT without contrast 03/12/2016 HISTORY Increased confusion since 03/11/2016 altered mental status. TECHNIQUE This CT exam was performed with one or more of the following radiation dose reduction techniques: automatic exposure control, adjustment of mA and/or kV according to patient size, and iterative reconstruction. Multiple axial images were obtained from the skull base to vertex without intravenous contrast administration. FINDINGS There is generalized atrophy. Fluid collections over both right and left cerebral convexities primarily in the frontal regions are unchanged compared with 03/11/2016. As noted previously, the lateral ventricles appears somewhat small and there continues to be effacement of the cortical sulci over both the right and left cerebral hemispheres suggesting a degree of mass effect related to the fluid collections. Clinical correlation is recommended. There is no midline shift. No intraaxial fluid collection is seen. IMPRESSION No interval change compared with head CT 03/11/2016 Dictated by... Luis Enrique Cespedes M.D. THIS IS AN ELECTRONICALLY VERIFIED REPORT Luis Enrique Cespedes M.D. at 03/13/2016 2:40 PM [facility] A Service [facility] RADIOLOGY TEXT RESULTS PATIENT: PHIL SNELL LOCATION: [facility] 333-01 : [birth year] UNIT #: [id number] AGE: [address]: Hyun Craig MD SEX: M ORDER DR: Driss TD: 03/12/2016 22:12 JOB #: [id number] MEDICAL IMAGING REPORT COPY
--- NOTE | ~2016-03-11 | CR72 ---
[facility] A Service of [facility] & [facility] RADIOLOGY TEXT RESULTS PATIENT: PHIL SNELL LOCATION: [address] : [birth year] UNIT #: [id number] AGE: [address]: Hyun Craig MD SEX: M ORDER DR: [id number] [facility] [address] [facility]. [place], [place] [address] [id number] I MR#: [id number] Acc #: [id number] NAME: PHIL SNELL : 1945 SEX: M STUDY DATE/TIME: 03/15/2016 5:32 UNIT: [facility] ROOM: [facility] STUDY DESCRIPTION: CR Chest Single View Portable Attending Physician: Hyun Craig M.D. Ordering Physician: Sherry Ramos M.D. Primary Care Physician: Guillaume Mancilla M.D. MEDICAL IMAGING REPORT This report is preliminary unless electronic signature is present EXAM Portable chest radiograph HISTORY Endotracheal tube placement. Patient has a history of respiratory failure for 2 days. FINDINGS Comparison is made to prior exam. Endotracheal tube is present which terminates above the level of the clavicles. It could be advanced about 3.0-3.5 cm. Cardiomegaly and vascular congestion are noted. There are bilateral pleural effusions. These do not appear significantly changed when compared to yesterday's study. No pneumothorax is identified. Bibasilar consolidation is noted which is favored to represent compressive atelectasis but certainly superimposed infiltrates are not excluded. Fractured superior sternal wire is again noted. Dictated by... Kitty Edwards M.D. THIS IS AN ELECTRONICALLY VERIFIED REPORT Kitty Edwards M.D. at 03/16/2016 1:00 PM LEONARDO/felisha TD: 03/15/2016 12:48 JOB #: [id number] MEDICAL IMAGING REPORT COPY
--- NOTE | ~2016-03-11 | CR72 ---
[facility] A Service of [facility] & [facility] RADIOLOGY TEXT RESULTS PATIENT: PHIL SNELL LOCATION: [address] : [birth year] UNIT #: [id number] AGE: [address]: Hyun Craig MD SEX: M ORDER DR: [id number] [facility] [address] [facility]. [place], [place] [address] [id number] I MR#: [id number] Acc #: [id number] NAME: PHIL SNELL : 1945 SEX: M STUDY DATE/TIME: 03/15/2016 23:02 UNIT: [facility] ROOM: [facility] STUDY DESCRIPTION: CR Chest Single View Portable Attending Physician: Hyun Craig M.D. Ordering Physician: Hyun Craig M.D. Primary Care Physician: Guillaume Mancilla M.D. MEDICAL IMAGING REPORT This report is preliminary unless electronic signature is present EXAM Single portable AP view of the chest, 03/15/2016 at 23:02 hours HISTORY 70-year-old male with PICC line placement. FINDINGS In comparison to the previous exam of 03/15/2016 at 05:32 hours there has been interval placement of a right-sided PICC line. Distal tip ends in the mid axillary region. The endotracheal tube, heart and lungs are otherwise unchanged. Cardiac enlargement remains present. IMPRESSION Interval placement of a right-sided PICC line with distal tip in the mid axillary region. The heart and lungs as well as endotracheal tube otherwise unchanged. Dictated by... Artie Bowman M.D. THIS IS AN ELECTRONICALLY VERIFIED REPORT Artie Bowman M.D. at 03/16/2016 11:06 PM Mukul TD: 03/16/2016 10:35 JOB #: [id number] MEDICAL IMAGING REPORT COPY
--- NOTE | ~2016-03-11 | HP ---
Unit #: [id number] #: [id number] Patient: PHIL SNELL [id number] [address] [address] [id number] E MR#: [id number] NAME: PHIL SNELL ROOM: Age: 70 Sex: M Admission Date: 03/11/2016 : 1945 Attending Physician: Darrin Espinoza M.D. Primary Care Physician: Guillaume Mancilla M.D. HISTORY AND PHYSICAL CHIEF COMPLAINT Confusion. HISTORY OF PRESENT ILLNESS The patient is a 70-year-old male with past medical history of multiple medical problems including left upper extremity DVT, paroxysmal atrial fibrillation, diastolic dysfunction, coronary artery disease, peripheral arterial disease, diabetes, hypothyroidism, obstructive sleep apnea, peritoneal hematoma, pneumothorax, hypertension, hyperlipidemia, BPH, chronic kidney disease, foot wound, immobility, GERD, who presented to the emergency department from rehab for evaluation of the above. Of note, the patient was hospitalized at [facility] in December of 2015 for femorotibial artery bypass with graft. His hospital course was somewhat complicated. Per available records, the patient developed acute hypoxemic and hypercapnic respiratory failure postoperatively. He required intubation and mechanical ventilation. He also had acute encephalopathy. Per the patient's , he was unable to talk or move. He was discharged to [facility]. He developed a large decubitus ulcer. He also developed a left upper extremity DVT. He also has multiple wounds involving the right foot and leg along with a wound involving his left lower extremity stump. He underwent left [id number] amputation at some point within the past couple of months. The patient's states that he has (1) rehab now been able to carry on a conversation. She states that he is typically alert and oriented x3, although he does have intermittent "memory issues". She states that sometimes, in her opinion, when he is stressed, he becomes confused. He is able to move his upper extremities minimally. He is right handed. Per the patient's , the plan was for him to be admitted last night for a decubitus ulcer, however, that plan was not carried through. It is unclear why. This morning he was noted to have altered mental status at the rehab and so was sent to the emergency department for further evaluation. In the emergency department, the patient's temperature was 98.7, pulse 88, respiration 16, blood pressure 153/62. Oxygen saturation was 95% on room air. Laboratory is notable for a WBC count of 13.8, hemoglobin and hematocrit 8.4 and 26.7 respectively. Comprehensive metabolic panel notable for BUN and creatinine of 32 and 1.4 respectively. The patient was also noted to have an INR of 7.6. He was given 10 mg of vitamin K p.o. He is being admitted to [facility] for evaluation and further treatment. PAST MEDICAL HISTORY Unit #: [id number] #: [id number] Patient: PHIL SNELL 1. Complicated course at [facility], December 13, 2015, discharged to [facility] and finally rehab. He has been at rehab for less than a week. Please see HPI for details. 2. Sacral decubitus ulcer present on admission. 3. Left upper extremity DVT. 4. Paroxysmal atrial fibrillation. 5. Chronic anticoagulation with Coumadin. 6. Diastolic dysfunction with unknown ejection fraction. 7. Coronary artery disease status post coronary artery bypass grafting following by Dr. Alejandra. 8. Peripheral arterial disease status post femorotibial artery bypass graft as well as carotid endarterectomy. 9. Hypothyroidism. 10. Obstructive sleep apnea noncompliant with CPAP. 11. Hypertension. 12. BPH. 13. Diabetes. 14. History of left retroperitoneal hematoma. 15. History of right pneumothorax. 16. Immobility. 17. Cervical laminectomy. 18. Septoplasty. 19. Cataract surgery. 20. Hand surgery. 21. Left [id number]-toa-[id number] amputation. SOCIAL HISTORY The patient is currently at rehab. He quit smoking years ago. There is no alcohol. FAMILY HISTORY Coronary artery disease and diabetes. ALLERGIES Sulfa, ezetimibe. HOME MEDICATIONS 1. Hydralazine 25 mg t.i.d. 2. Synthroid 200 mcg daily. 3. Protonix 40 mg daily. 4. Lasix 40 mg daily. 5. Iron daily. 6. Clindamycin 300 mg four times daily. 7. DuoNeb q.4 hours four times daily. 8. Metoprolol 50 mg q.12 hours. 9. Florastor twice daily. 10. Mucinex twice daily. 11. Neurontin 100 mg at bedtime. 12. Dulcolax 10 mg per rectum daily p.r.n. 13. Lortab 5/325 mg q.6 hours p.r.n. 14. Zofran 8 mg p.o. q.8 hours p.r.n. 15. Coumadin 6 mg daily. REVIEW OF SYSTEMS A complete review of systems is negative except as indicated in the HPI. The patient denies any chest pain. No difficulty breathing. PHYSICAL EXAMINATION Unit #: [id number] #: [id number] Patient: PHIL SNELL GENERAL APPEARANCE: The patient is a male who is chronically ill appearing. VITAL SIGNS: Temperature is 98.7. Pulse 88. Respirations 16. Blood pressure 153/62. Oxygen saturation 95% on room air. HEENT: The head is atraumatic. Mucous membranes are moist. NECK: The patient has a tracheostomy in place. CARDIOVASCULAR: Regular rate and rhythm. LUNGS: Decreased breath sounds at the bases. Breathing is not labored. ABDOMEN: Soft, nontender with bowel sounds present in all four quadrants. EXTREMITIES: The left lower extremity has been previously amputated below the knee. The right lower extremity is in a boot. NEUROLOGIC: The patient is oriented x3. 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 He is at baseline per the patient's . PSYCHIATRIC: The patient is cooperative. He does have a flat affect. SKIN: The patient has a very large unstageable sacral decubitus ulcer that is currently packed. There is also a dressing to the right foot as well as the stump of the left lower extremity. DIAGNOSTIC STUDIES LABORATORY: Troponin is less than 0.05. INR is 7.6. CPK is 64. Urinalysis notable for trace leukocyte esterase, 1+ protein, 1+ blood with 2 to 5 RBCs, 5 to 10 WBCs. Comprehensive metabolic panel notable for glucose of 147, BUN and creatinine 32 and 1.4 respectively. Calcium is 8 but corrects when albumin of 1.9 is accounted for. Alkaline phosphatase 139. Complete blood count notable for WBC count of 13.8, hemoglobin and hematocrit 8.4 and 26.7 respectively. Platelets are 539. IMAGING: CT of the head shows subdural fluid collections that were present on prior study, January 01, 2016. However, evidence of sulcal effacement in the lateral ventricles have decreased in size from the last study suggesting some possible mass effect. Chest x-ray shows cardiomegaly and vascular congestion slightly improved from prior. Small bilateral pleural effusions are also probably stable. CARDIOVASCULAR: EKG shows normal sinus rhythm with a rate of 82 beats per minute. ASSESSMENT The patient is a 70-year-old male with: 1. Altered mental status. The patient has now returned to baseline. 2. Sacral decubitus ulcer, present on admission and unstageable. 3. Leukocytosis. 4. Anemia. The patient's hemoglobin is 8.4 today. It was 9 in 2008. There is no recent baseline for comparison. 5. Supratherapeutic INR. The patient's INR is 7.6. He received 10 mg of vitamin K in the emergency department. 6. Left upper extremity DVT. 7. Paroxysmal atrial fibrillation. The patient is currently in normal sinus rhythm with a rate of 82 beats per minute. 8. Diastolic dysfunction with unknown ejection fraction with bilateral pleural effusions noted on chest x-ray but appear to be stable when compared to previous. 9. Coronary artery disease status post coronary artery bypass grafting. 10. Peripheral arterial disease status post femorotibial artery bypass with graft followed by Dr. Sim. 11. Diabetes. 12. Hypothyroidism. Unit #: [id number] #: [id number] Patient: PHIL SNELL 13. Obstructive sleep apnea noncompliant with CPAP. 14. History of left retroperitoneal hematoma. 15. History of right-sided pneumothorax. 16. Bilateral subdural fluid collection with changes suggestive of mass effect noted on CT. 17. Hypertension. 18. BPH. 19. Chronic kidney disease. 20. Hyperlipidemia. 21. Foot wound. 22. Wound to left lower extremity stump. 23. GERD. 24. Immobility. PLAN 1. Admit to intermediate level. 2. Blood cultures x2. 3. Wound culture and sensitivity. 4. Consult [facility] regarding sacral decubitus ulcer. 5. TSH, B12 and folate. 6. Neuro checks q.4 hours. 7. Hemoglobin A1C. 8. Low dose sliding scale insulin with Accu-Cheks. 9. Hold Coumadin. 10. Consult Dr. Sim regarding peripheral arterial disease and right lower extremity wound. 11. Iron studies, B12 and folate. 12. Hemoccult stool. 13. Repeat hemoglobin later this evening. 14. Consult Dr. Watts regarding bilateral subdural fluid collections. 15. Repeat labs in the morning. 16. Additional workup and consultants based on above. 17. Get records from [facility]. 1. Dictated by Caroline Amador M.D. LUISITO/yisel TD: 03/11/2016 12:53 JOB #: [id number] HISTORY AND PHYSICAL X Caroline Amador MD X HISTORY AND PHYSICAL
--- NOTE | ~2016-03-11 | CR72 ---
[facility] A Service of [facility] RADIOLOGY TEXT RESULTS PATIENT: PHIL SNELL LOCATION: [facility] 55- : 45 UNIT #: [id number] AGE: [address]: Hyun Craig MD SEX: M ORDER DR: [id number] [facility] [address] [facility]. [place], [place] [address] [id number] I MR#: [id number] Acc #: [id number] NAME: PHIL SNELL : 1945 SEX: M STUDY DATE/TIME: 03/21/2016 4:02 UNIT: [facility] ROOM: [facility] STUDY DESCRIPTION: CR Chest Single View Portable Attending Physician: Hyun Craig M.D. Ordering Physician: Sherry Ramos M.D. Primary Care Physician: Guillaume Mancilla M.D. MEDICAL IMAGING REPORT This report is preliminary unless electronic signature is present EXAM Frontal chest 03/21/2016 INDICATIONS Respiratory failure, short of air, congestion in a 70-year-old male. Confusion. Symptoms 11 days. TECHNIQUE Frontal chest compared with 03/20/2016 FINDINGS Enteric tube tip below the diaphragm at the level of the proximal body stomach. The heart is enlarged but stable. Lung volumes are low. There is probable vascular congestion. There is a right-sided effusion which may be partially loculated versus some pleural thickening on the right. There is atelectasis or infiltrate in the mid and lower lung zone on the right. No new opacities on the left. No pneumothorax. Left CP angle not fully included in the field of view. There is a right-sided PICC line extending to the level of the axillary vein unchanged. IMPRESSION 1. Cardiomegaly and vascular congestion. 2. Low lung volumes with a right-sided effusion and compressive atelectasis or pneumonia in the right lung base extending into the midlung zone on the right. Partially loculated pleural fluid or pleural thickening on the right unchanged. 3. No pneumothorax. Tubes and lines in satisfactory position. Dictated by... Juancho Stratton M.D. [facility] A Service of [facility] & [facility] RADIOLOGY TEXT RESULTS PATIENT: PHIL SNELL LOCATION: [facility] 551-01 : [birth year] UNIT #: [id number] AGE: [address]: Hyun Craig MD SEX: M ORDER DR: THIS IS AN ELECTRONICALLY VERIFIED REPORT Juancho Stratton M.D. at 03/24/2016 9:50 AM Mateo TD: 03/21/2016 07:21 JOB #: [id number] MEDICAL IMAGING REPORT COPY
--- NOTE | ~2016-03-11 | A ---
[facility] Nutrition Therapy DATE: 03/12/16 Patient: PHIL SNELL Physician: COTY Address: [address] Room/Bed: [address] [place] [address], Zip: [place] [address] Admit Date: 03/11/16 Date of : 45 Height: 6 1 Weight: 294 133.5 NUTRITIONAL ASSESSMENT: REASON: Consult RE: Nutritional supplements 70 yo male admitted for confusion, AMS PMH: Left BKA, TOMAS, DVT, Afib, peritoneal hematoma, pneumothorax, diastolic dysfunction, CAD, DM, HTN, HLD, hypothyroid, immobility, GERD Anthropometrics: Ht: 6'1" Wt: 133.5 kg BMI: 38.8 Labs: Gluc 144 BUN 32 Ca++ 8.1 Alb 1.8 Prealbumin 7.7 GFR 58 Meds: Lipitor, furosemide, synthroid, lopressor, zofran, bisacodyl, therapeutic formula, protonix, novolog, NaCl I/O & Bowel function: 650/1001, last BM 03/12 Skin Integrity: Left BKA Scar back of neck/ mid chest Skin tear LFA Decubitus ulcer to left and right buttocks Edema: BUE 3+ Estimated Nutrition Needs: Increased protein needs due to sacral ulcers Diet: Heart healthy/ consistent carbohydrate + 2000 mL Fluid restrition Assessment: Chart reviewed, events noted. Pt was receiving breathing treatment at time of RD visit. RD spoke to the pt, and obtained most information from family/ ? in room. Pt's family reports that he was eating well until the day of admission when his appetite decreased due to feeling bad/ confusion. Pt's family member reports that he consumed 35-40% of his breakfast this morning. Pt's ? reports that the pt lost weight at , and seems to have gained it back. RD suggested Glucerna supplements due to the pt's increase protein needs. Pt shook his head, stating "I don't like those". Pt's family member reports that he tried Boost at [place] and did not like it; however, he wanted to try the chocolate flavor and never did. RD will order Glucerna chocoloate for supplemental protein. RD also suggested to the pt's ? that she encourage the pt to consume 100% of the protein option with his meal. Pt's family agreed, and denied having any further questions. [facility] Nutrition Therapy DATE: 03/12/16 Patient: PHIL SNELL Physician: COTY Address: [address] Room/Bed: [address] [place] [address], Zip: [place] [address] Admit Date: 03/11/16 Date of : 45 Height: 6 1 Weight: 294 133.5 Dx: Increased protein needs RT delayed wound healing AEB decubitus ulcer to left and right buttock. Intervention: 1. Continue current diet 2. Glucerna BID Monitoring, Evaluation and Goals: 1. Oral intake; tolerate 50-75% of meals and supps 2. Labs; WNL 3. Weight; prevent unintentional weight loss 4. Skin; promote healing Recommendations: 1. Continue heart healthy/ consistent carbohydrate diet with fluid restriction per MD. 2. Glucerna chocolate BID with meals for supplemental protein. 3. Appreciate staff and family encouraging the pt to consume supplements and protein options at meals. Pt is at mild-moderate nutritional risk. RD will follow hospital course per protocol. Respectfully, ERICH SKINNER, JEANNETTE, LD [employer] [facility] cc: client file
[~2016-03-11 06:30] MED LIST: ACTONEL PO; ACTOPLUS MET; ACTOS/METFORMIN PO; AMBIEN PO; AMIODARONE PO; ASPIRIN PO; AVODART0.5 MG PO; CLINDAMYCIN HC300 MG PO; COUMADIN PO; DULCOLAX10 MG/SUPP PR; FERREX 150 PLU1 EACH PO; FERROUS SULFATE PO; FLORASTOR PO; FLURBIPROFEN100 MG PO; GLUCOPHAGE XR500 MG PO; GLUCOTROL PO; GLUCOTROL XL PO; HYDRALAZINE HCL25 MG PO; HYDROCODONE-APA1 T30 PO; IPRAT-ALBUT 0.5-3 ML INH; KCL PO; LASIX PO; LORTAB 5-325 M1 EACH PO; LYRICA PO; METOPROLOL TART25 MG PO; MUCINEX D ER T1 EACH PO; NEURONTIN100 MG PO; PLAVIX PO; PROTONIX PO; SYNTHROID PO; TALWIN NX TABLE1 TAB PO; TOPROL XL PO; ZOFRAN PO
[2016-03-11 06:45] LABS: POC - CKMB 22.5 ng/mL (0.0-7.9); POC - TROPONIN <0.05 ng/mL (<=0.05)
[2016-03-11 06:49] LABS: BASOPHIL# 0.2 X10e3 (0-0.3); BASOPHIL% 1.3 % (0-2.5); EOSINOPHIL# 0.3 X10e3 (0-0.7); EOSINOPHIL% 2.4 % (0.0-7.0); HEMATOCRIT 26.7 % (38.0-50.0); HEMOGLOBIN 8.4 gm/dL (13.0-16.0); LYMPHOCYTE# 2.3 X10e3 (1.0-3.5); LYMPHOCYTE% 16.7 % (17.0-45.0); MEAN CORPUSCULAR HEMOGLOBIN 27.2 PG (28-34); MEAN CORPUSCULAR HGB CONC 31.3 g/dL (30-36); MEAN PLATELET VOLUME 7.7 FL (6.5-11.5); MONOCYTE# 0.9 X10e3 (0-1.0); MONOCYTE% 6.8 % (3.0-12.0); NEUTROPHIL# 10.1 X10e3 (1.5-7.1); NEUTROPHIL% 72.8 % (40-75); PLATELET COUNT 539 X10e3 (140-420); RED BLOOD COUNT 3.07 X10e (3.90-5.60); RED CELL DISTRIBUTION WIDTH 16.4 % (11.0-15.5); WHITE BLOOD COUNT 13.8 X10e3 (4.0-10.5)
[2016-03-11 07:00] LABS: URINE SOURCE CLEAN CATCH
[2016-03-11 07:04] LABS: URINE APPEARANCE CLEAR; URINE BILIRUBIN NEG (NEG); URINE BLOOD 1+ (NEG); URINE COLOR YELLOW; URINE GLUCOSE NEG (NEG); URINE KETONE NEG (NEG); URINE LEUKOCYTE ESTERASE TRACE (NEG); URINE NITRATE NEG (NEG); URINE PROTEIN 1+ (NEG); URINE SPECIFIC GRAVITY 1.021 (1.003-1.035); URINE UROBILINOGEN 0.2 MG/DL (NEG)
[2016-03-11 07:06] LABS: CULTURE INDICATED? YES; URINE BACTERIA AUWI NEG (NEGATIVE); URINE SQUAMOUS EPITHELIAL CELL NONE SEEN /[HPF]
[2016-03-11 07:08] LABS: DIFF IND NO
[2016-03-11 07:11] LABS: ALBUMIN SERUM 1.9 g/dL (3.5-5.0); ALKALINE PHOSPHATASE 139 U/L (32-92); ALT (SGPT) 15 U/L (10-40); AST (SGOT) 20 U/L (10-42); BILIRUBIN,TOTAL 0.3 mg/dL (0.2-2.0); BLOOD UREA NITROGEN 32 mg/dL (9-23); BUN/CREATININE RATIO 22.85; CARBON DIOXIDE 24 mmol/L (22-31); CHLORIDE 108 mmol/L (100-111); CREATININE SERUM 1.4 mg/dL (0.6-1.4); GLOM FILT RATE Estimated 53.2 mL/min (>60); GLUCOSE FASTING 147 mg/dL (70-110); POTASSIUM 4.9 mmol/L (3.5-5.1); PROTEIN TOTAL SERUM 6.2 g/dL (6.0-8.3); SODIUM 137 mmol/L (135-145)
[2016-03-11 07:16] LABS: BILIRUBIN, DIRECT <0.1 mg/dL (0.0-0.2); BILIRUBIN,INDIRECT 0.2 mg/dL (0.0-0.9)
[2016-03-11 07:22] LABS: PARTIAL THROMBOPLASTIN TIME 72.8 SECONDS (23.5-31.3); PROTHROMBIN TIME (PATIENT) 85.9 SECONDS (9.6-11.5)
[2016-03-11 07:23] LABS: URINE GRANULAR CAST 0-2 /[HPF]
[2016-03-11 07:26] LABS: URINE TRANSITIONAL EPI CELLS FEW /[HPF]
[2016-03-11 07:42] LABS: INR 7.6
[2016-03-11 08:40] LABS: POC - CKMB 18.6 ng/mL (0.0-7.9); POC - TROPONIN <0.05 ng/mL (<=0.05)
[2016-03-11] MEDS ORDERED: COUMADIN6 MG PO (08:56)
[2016-03-11 15:10] LABS: CK TOTAL 51 IU/L (36-174)
[2016-03-11 18:13] LABS: HEMOGLOBIN 8.2 gm/dL (13.0-16.0)
[2016-03-11 18:42] LABS: CK TOTAL 47 IU/L (36-174)
[2016-03-12 06:15] LABS: INR 1.4
[2016-03-12 06:18] LABS: PROTHROMBIN TIME (PATIENT) 15.3 SECONDS (9.6-11.5)
[2016-03-12 06:23] LABS: BASOPHIL% 0.2 % (0-2.5); EOSINOPHIL# 0.5 X10e3 (0-0.7); EOSINOPHIL% 2.8 % (0.0-7.0); HEMATOCRIT 23.8 % (38.0-50.0); HEMOGLOBIN 7.5 gm/dL (13.0-16.0); LYMPHOCYTE# 2.4 X10e3 (1.0-3.5); LYMPHOCYTE% 15.3 % (17.0-45.0); MEAN CELL VOLUME 86.6 FL (83-96); MEAN CORPUSCULAR HEMOGLOBIN 27.4 PG (28-34); MEAN CORPUSCULAR HGB CONC 31.6 g/dL (30-36); MEAN PLATELET VOLUME 7.7 FL (6.5-11.5); MONOCYTE# 1.2 X10e3 (0-1.0); MONOCYTE% 7.5 % (3.0-12.0); NEUTROPHIL# 11.8 X10e3 (1.5-7.1); NEUTROPHIL% 74.2 % (40-75); PLATELET COUNT 488 X10e3 (140-420); RED BLOOD COUNT 2.75 X10e (3.90-5.60); RED CELL DISTRIBUTION WIDTH 16.4 % (11.0-15.5); WHITE BLOOD COUNT 15.9 X10e3 (4.0-10.5)
[2016-03-12 06:26] LABS: DIFF IND YES
[2016-03-12 06:37] LABS: ALBUMIN SERUM 1.8 g/dL (3.5-5.0); BILIRUBIN,TOTAL 0.6 mg/dL (0.2-2.0); BUN/CREATININE RATIO 24.61; CALCIUM SERUM 8.1 mg/dL (8.4-10.2); CREATININE SERUM 1.3 mg/dL (0.6-1.4); PROTEIN TOTAL SERUM 5.1 g/dL (6.0-8.3)
[2016-03-12 07:12] LABS: ANISOCYTOSIS SL; PLATELET ESTIMATE INCREASED (NORMAL)
[2016-03-12 09:52] LABS: INR 1.3; PARTIAL THROMBOPLASTIN TIME 39.6 SECONDS (23.5-31.3); PROTHROMBIN TIME (PATIENT) 13.4 SECONDS (9.6-11.5)
[2016-03-13 06:27] LABS: HEMOGLOBIN 7.4 gm/dL (13.0-16.0); MEAN CELL VOLUME 88.1 FL (83-96); MEAN CORPUSCULAR HEMOGLOBIN 28.2 PG (28-34); MEAN CORPUSCULAR HGB CONC 32.1 g/dL (30-36); MEAN PLATELET VOLUME 7.9 FL (6.5-11.5); RED BLOOD COUNT 2.61 X10e (3.90-5.60); RED CELL DISTRIBUTION WIDTH 17.1 % (11.0-15.5); WHITE BLOOD COUNT 14.4 X10e3 (4.0-10.5)
[2016-03-13 06:29] LABS: INR 1.1; PROTHROMBIN TIME (PATIENT) 11.5 SECONDS (9.6-11.5)
[2016-03-13 07:53] LABS: BUN/CREATININE RATIO 23.57; CALCIUM SERUM 8.4 mg/dL (8.4-10.2); CREATININE SERUM 1.4 mg/dL (0.6-1.4); GLOM FILT RATE Estimated 53.2 mL/min (>60); MAGNESIUM 1.6 mg/dL (1.6-3.0); POTASSIUM 5.2 mmol/L (3.5-5.1)
[2016-03-13 11:55] LABS: IRON SERUM 97 ug/dL (45-182); TOTAL IRON BINDING CAPACITY 151 ug/dL (252-460); TRANSFERRIN 108 mg/dL (180-329); TRANSFERRIN SATURATION 64 % (20-50)
[2016-03-13 19:54] LABS: ARTERIAL BLD GAS O2 SATURATION 97.6 % (90.0-100.0); ARTERIAL BLOOD GAS CARBOXY HB 1.9 %sat (0.0-9.0); ARTERIAL BLOOD GAS MET HB 0.7 %sat (0.0-2.0)
[2016-03-13 19:56] LABS: ARTERIAL BLOOD GAS ALLEN TEST NORMAL; ARTERIAL BLOOD GAS ART SITE LEFT RADIAL; ARTERIAL BLOOD GAS DELIVERY VENT; ARTERIAL BLOOD GAS VENT MODE AC; ARTERIAL DRAW? YES
[2016-03-13 22:48] LABS: HEMATOCRIT 24.7 % (38.0-50.0)
[2016-03-13 23:19] LABS: BUN/CREATININE RATIO 22.66; CALCIUM SERUM 7.9 mg/dL (8.4-10.2); CREATININE SERUM 1.5 mg/dL (0.6-1.4); GLOM FILT RATE Estimated 49.2 mL/min (>60); MAGNESIUM 1.7 mg/dL (1.6-3.0); PHOSPHOROUS 4.6 mg/dL (2.5-4.6); POTASSIUM 5.4 mmol/L (3.5-5.1)
[2016-03-14 04:16] LABS: ARTERIAL BLD GAS O2 SATURATION 97.6 % (90.0-100.0); ARTERIAL BLOOD GAS HCO3 22.8 mmol/L
[2016-03-14 04:23] LABS: ARTERIAL BLOOD GAS ALLEN TEST NORMAL; ARTERIAL BLOOD GAS ART SITE LEFT RADIAL; ARTERIAL BLOOD GAS DELIVERY VENT; ARTERIAL BLOOD GAS VENT MODE AC; ARTERIAL DRAW? YES
[2016-03-14 06:20] LABS: BASOPHIL# 0.1 X10e3 (0-0.3); EOSINOPHIL# 0.2 X10e3 (0-0.7); EOSINOPHIL% 1.2 % (0.0-7.0); HEMATOCRIT 25.7 % (38.0-50.0); HEMOGLOBIN 8.3 gm/dL (13.0-16.0); LYMPHOCYTE# 1.8 X10e3 (1.0-3.5); LYMPHOCYTE% 13.1 % (17.0-45.0); MEAN CELL VOLUME 87.2 FL (83-96); MEAN CORPUSCULAR HEMOGLOBIN 28.1 PG (28-34); MEAN CORPUSCULAR HGB CONC 32.2 g/dL (30-36); MEAN PLATELET VOLUME 8.2 FL (6.5-11.5); MONOCYTE% 7.6 % (3.0-12.0); NEUTROPHIL# 10.5 X10e3 (1.5-7.1); NEUTROPHIL% 77.1 % (40-75); PLATELET COUNT 378 X10e3 (140-420); RED BLOOD COUNT 2.95 X10e (3.90-5.60); RED CELL DISTRIBUTION WIDTH 16.3 % (11.0-15.5); WHITE BLOOD COUNT 13.6 X10e3 (4.0-10.5)
[2016-03-14 06:22] LABS: DIFF IND NO
[2016-03-14 06:26] LABS: ALBUMIN SERUM 1.7 g/dL (3.5-5.0); BILIRUBIN,TOTAL 0.5 mg/dL (0.2-2.0); BUN/CREATININE RATIO 21.33; CALCIUM SERUM 7.8 mg/dL (8.4-10.2); CREATININE SERUM 1.5 mg/dL (0.6-1.4); GLOM FILT RATE Estimated 49.2 mL/min (>60); MAGNESIUM 1.5 mg/dL (1.6-3.0); PHOSPHOROUS 4.2 mg/dL (2.5-4.6); POTASSIUM 4.9 mmol/L (3.5-5.1); PROTEIN TOTAL SERUM 5.1 g/dL (6.0-8.3)
[2016-03-15 04:14] LABS: ARTERIAL BLD GAS O2 SATURATION 96.4 % (90.0-100.0); ARTERIAL BLOOD GAS CARBOXY HB 1.8 %sat (0.0-9.0); ARTERIAL BLOOD GAS HCO3 23.7 mmol/L; ARTERIAL BLOOD GAS MET HB 0.5 %sat (0.0-2.0)
[2016-03-15 04:18] LABS: ARTERIAL BLOOD GAS ALLEN TEST NORMAL; ARTERIAL BLOOD GAS ART SITE LEFT RADIAL; ARTERIAL BLOOD GAS DELIVERY VENT; ARTERIAL DRAW? YES
[2016-03-15 04:19] LABS: ARTERIAL BLOOD GAS VENT MODE AC
[2016-03-15 07:46] LABS: BASOPHIL# 0.1 X10e3 (0-0.3); BASOPHIL% 0.9 % (0-2.5); DIFF IND NO; EOSINOPHIL# 0.4 X10e3 (0-0.7); EOSINOPHIL% 2.8 % (0.0-7.0); HEMATOCRIT 23.6 % (38.0-50.0); HEMOGLOBIN 7.4 gm/dL (13.0-16.0); LYMPHOCYTE# 1.7 X10e3 (1.0-3.5); LYMPHOCYTE% 11.2 % (17.0-45.0); MEAN CELL VOLUME 89.2 FL (83-96); MEAN CORPUSCULAR HGB CONC 31.4 g/dL (30-36); MEAN PLATELET VOLUME 8.2 FL (6.5-11.5); MONOCYTE# 1.3 X10e3 (0-1.0); MONOCYTE% 8.3 % (3.0-12.0); NEUTROPHIL# 11.8 X10e3 (1.5-7.1); NEUTROPHIL% 76.8 % (40-75); PLATELET COUNT 390 X10e3 (140-420); RED BLOOD COUNT 2.65 X10e (3.90-5.60); WHITE BLOOD COUNT 15.3 X10e3 (4.0-10.5)
[2016-03-15 07:55] LABS: BUN/CREATININE RATIO 18.75; CALCIUM SERUM 7.3 mg/dL (8.4-10.2); CREATININE SERUM 1.6 mg/dL (0.6-1.4); GLOM FILT RATE Estimated 45.6 mL/min (>60); MAGNESIUM 1.4 mg/dL (1.6-3.0); PHOSPHOROUS 3.8 mg/dL (2.5-4.6); POTASSIUM 4.3 mmol/L (3.5-5.1)
[2016-03-15 14:27] LABS: ARTERIAL BLD GAS O2 SATURATION 92.3 % (90.0-100.0); ARTERIAL BLOOD GAS HCO3 23.9 mmol/L; ARTERIAL BLOOD GAS MET HB 0.7 %sat (0.0-2.0)
[2016-03-15 14:28] LABS: ARTERIAL BLOOD GAS ALLEN TEST NORMAL; ARTERIAL BLOOD GAS ART SITE RIGHT RADIAL; ARTERIAL BLOOD GAS DELIVERY VENT; ARTERIAL BLOOD GAS VENT MODE CPAP; ARTERIAL DRAW? YES
[2016-03-15 16:38] LABS: URINE APPEARANCE CLOUDY; URINE BILIRUBIN NEG (NEG); URINE BLOOD 2+ (NEG); URINE COLOR YELLOW; URINE GLUCOSE NEG (NEG); URINE KETONE NEG (NEG); URINE LEUKOCYTE ESTERASE 2+ (NEG); URINE NITRATE NEG (NEG); URINE PROTEIN NEG (NEG); URINE SPECIFIC GRAVITY 1.012 (1.003-1.035); URINE UROBILINOGEN 0.2 MG/DL (NEG)
[2016-03-15 16:40] LABS: CULTURE INDICATED? YES; URINE BACTERIA AUWI NEG (NEGATIVE); URINE SQUAMOUS EPITHELIAL CELL MOD /[HPF]; UWBCS1 AUWI 50-100 (0-5)
[2016-03-15 16:53] LABS: URINE CRYSTALS URIC ACID /[HPF]
[2016-03-15 22:32] LABS: HEMATOCRIT 22.9 % (38.0-50.0); MEAN CORPUSCULAR HEMOGLOBIN 27.7 PG (28-34); MEAN CORPUSCULAR HGB CONC 30.1 g/dL (30-36); MEAN PLATELET VOLUME 7.7 FL (6.5-11.5); RED BLOOD COUNT 2.49 X10e (3.90-5.60); RED CELL DISTRIBUTION WIDTH 17.7 % (11.0-15.5); WHITE BLOOD COUNT 24.8 X10e3 (4.0-10.5)
[2016-03-15 22:33] LABS: HEMOGLOBIN 6.9 gm/dL (13.0-16.0)
[2016-03-16 04:49] LABS: ARTERIAL BLD GAS O2 SATURATION 96.7 % (90.0-100.0); ARTERIAL BLOOD GAS CARBOXY HB 1.5 %sat (0.0-9.0); ARTERIAL BLOOD GAS HCO3 20.1 mmol/L; ARTERIAL BLOOD GAS MET HB 1.9 %sat (0.0-2.0)
[2016-03-16 05:02] LABS: ARTERIAL BLOOD GAS ALLEN TEST Y; ARTERIAL BLOOD GAS ART SITE RIGHT RADIAL; ARTERIAL DRAW? YES
[2016-03-16 05:03] LABS: ARTERIAL BLOOD GAS VENT MODE AC
[2016-03-16 06:06] LABS: BASOPHIL# 0.1 X10e3 (0-0.3); BASOPHIL% 0.4 % (0-2.5); EOSINOPHIL% 0.2 % (0.0-7.0); HEMATOCRIT 27.2 % (38.0-50.0); HEMOGLOBIN 8.6 gm/dL (13.0-16.0); LYMPHOCYTE# 1.9 X10e3 (1.0-3.5); LYMPHOCYTE% 6.6 % (17.0-45.0); MEAN CELL VOLUME 89.7 FL (83-96); MEAN CORPUSCULAR HEMOGLOBIN 28.4 PG (28-34); MEAN CORPUSCULAR HGB CONC 31.7 g/dL (30-36); MEAN PLATELET VOLUME 8.6 FL (6.5-11.5); MONOCYTE# 1.9 X10e3 (0-1.0); MONOCYTE% 6.5 % (3.0-12.0); NEUTROPHIL# 25.1 X10e3 (1.5-7.1); NEUTROPHIL% 86.3 % (40-75); PLATELET COUNT 417 X10e3 (140-420); RED BLOOD COUNT 3.04 X10e (3.90-5.60); RED CELL DISTRIBUTION WIDTH 16.1 % (11.0-15.5)
[2016-03-16 06:09] LABS: DIFF IND YES
[2016-03-16 06:56] LABS: NUCLEATED RED BLOOD CELL 1 /100 (0); PLATELET ESTIMATE NORMAL (NORMAL)
[2016-03-16 06:57] LABS: ANISOCYTOSIS SL
[2016-03-16 07:32] LABS: ALBUMIN SERUM 1.4 g/dL (3.5-5.0); BILIRUBIN,TOTAL 0.4 mg/dL (0.2-2.0); BUN/CREATININE RATIO 17.5; CALCIUM SERUM 7.7 mg/dL (8.4-10.2); GLOM FILT RATE Estimated 35.3 mL/min (>60); MAGNESIUM 1.8 mg/dL (1.6-3.0); PHOSPHOROUS 5.5 mg/dL (2.5-4.6); POTASSIUM 5.3 mmol/L (3.5-5.1); PROTEIN TOTAL SERUM 4.2 g/dL (6.0-8.3)
[2016-03-16 15:58] LABS: ARTERIAL BLOOD GAS CARBOXY HB 2.2 %sat (0.0-9.0); ARTERIAL BLOOD GAS HCO3 21.6 mmol/L; ARTERIAL BLOOD GAS MET HB 0.1 %sat (0.0-2.0)
[2016-03-16 15:59] LABS: ARTERIAL BLOOD GAS ALLEN TEST NORMAL; ARTERIAL BLOOD GAS ART SITE RIGHT RADIAL; ARTERIAL DRAW? YES
[2016-03-16 16:00] LABS: ARTERIAL BLOOD GAS DELIVERY VE; ARTERIAL BLOOD GAS VENT MODE CPAP
[2016-03-16 17:27] LABS: CALCIUM SERUM 6.9 mg/dL (8.4-10.2); GLOM FILT RATE Estimated 35.3 mL/min (>60); POTASSIUM 4.4 mmol/L (3.5-5.1)
[2016-03-17 04:41] LABS: ARTERIAL BLD GAS O2 SATURATION 97.2 % (90.0-100.0); ARTERIAL BLOOD GAS CARBOXY HB 1.6 %sat (0.0-9.0); ARTERIAL BLOOD GAS HCO3 22.2 mmol/L; ARTERIAL BLOOD GAS MET HB 0.8 %sat (0.0-2.0)
[2016-03-17 04:47] LABS: ARTERIAL BLOOD GAS ALLEN TEST Y; ARTERIAL BLOOD GAS ART SITE RIGHT RADIAL; ARTERIAL BLOOD GAS VENT MODE A/C; ARTERIAL DRAW? YES
[2016-03-17 06:19] LABS: BASOPHIL# 0.1 X10e3 (0-0.3); BASOPHIL% 0.5 % (0-2.5); EOSINOPHIL# 0.3 X10e3 (0-0.7); EOSINOPHIL% 1.4 % (0.0-7.0); HEMATOCRIT 24.1 % (38.0-50.0); HEMOGLOBIN 7.8 gm/dL (13.0-16.0); LYMPHOCYTE# 1.8 X10e3 (1.0-3.5); LYMPHOCYTE% 10.2 % (17.0-45.0); MEAN CELL VOLUME 89.6 FL (83-96); MEAN CORPUSCULAR HEMOGLOBIN 28.9 PG (28-34); MEAN CORPUSCULAR HGB CONC 32.3 g/dL (30-36); MEAN PLATELET VOLUME 7.9 FL (6.5-11.5); MONOCYTE# 1.4 X10e3 (0-1.0); NEUTROPHIL# 13.9 X10e3 (1.5-7.1); NEUTROPHIL% 79.9 % (40-75); PLATELET COUNT 305 X10e3 (140-420); RED BLOOD COUNT 2.69 X10e (3.90-5.60); RED CELL DISTRIBUTION WIDTH 16.5 % (11.0-15.5); WHITE BLOOD COUNT 17.4 X10e3 (4.0-10.5)
[2016-03-17 06:21] LABS: DIFF IND NO
[2016-03-17 06:45] LABS: ALBUMIN SERUM 1.3 g/dL (3.5-5.0); BILIRUBIN,TOTAL 0.5 mg/dL (0.2-2.0); BUN/CREATININE RATIO 19.52; CALCIUM SERUM 7.3 mg/dL (8.4-10.2); CREATININE SERUM 2.1 mg/dL (0.6-1.4); GLOM FILT RATE Estimated 33.4 mL/min (>60); MAGNESIUM 1.6 mg/dL (1.6-3.0); PHOSPHOROUS 5.1 mg/dL (2.5-4.6); POTASSIUM 4.2 mmol/L (3.5-5.1); PROTEIN TOTAL SERUM 4.2 g/dL (6.0-8.3)
[2016-03-17 12:45] LABS: ARTERIAL BLOOD GAS CARBOXY HB 2.5 %sat (0.0-9.0); ARTERIAL BLOOD GAS HCO3 21.5 mmol/L
[2016-03-17 12:46] LABS: ARTERIAL BLOOD GAS ART SITE LEFT RADIAL; ARTERIAL BLOOD GAS DELIVERY VENT; ARTERIAL BLOOD GAS VENT MODE CPAP; ARTERIAL DRAW? YES
[2016-03-18 04:34] LABS: ARTERIAL BLOOD GAS CARBOXY HB 0.4 %sat (0.0-9.0); ARTERIAL BLOOD GAS HCO3 25.2 mmol/L; ARTERIAL BLOOD GAS PCO2 41.9 mmHg (35.0-45.0); ARTERIAL BLOOD GAS pH 7.388 (7.350-7.450)
[2016-03-18 04:43] LABS: ARTERIAL BLOOD GAS ALLEN TEST NORMAL; ARTERIAL BLOOD GAS ART SITE RIGHT RADIAL; ARTERIAL BLOOD GAS DELIVERY VENT; ARTERIAL BLOOD GAS VENT MODE A/C; ARTERIAL DRAW? YES
[2016-03-18 06:23] LABS: BASOPHIL# 0.1 X10e3 (0-0.3); BASOPHIL% 0.5 % (0-2.5); EOSINOPHIL# 0.5 X10e3 (0-0.7); EOSINOPHIL% 2.5 % (0.0-7.0); HEMATOCRIT 26.2 % (38.0-50.0); HEMOGLOBIN 8.6 gm/dL (13.0-16.0); LYMPHOCYTE# 1.9 X10e3 (1.0-3.5); LYMPHOCYTE% 10.1 % (17.0-45.0); MEAN CELL VOLUME 88.2 FL (83-96); MEAN CORPUSCULAR HGB CONC 32.9 g/dL (30-36); MEAN PLATELET VOLUME 8.3 FL (6.5-11.5); MONOCYTE# 1.6 X10e3 (0-1.0); MONOCYTE% 8.6 % (3.0-12.0); NEUTROPHIL# 14.8 X10e3 (1.5-7.1); NEUTROPHIL% 78.3 % (40-75); PLATELET COUNT 306 X10e3 (140-420); RED BLOOD COUNT 2.97 X10e (3.90-5.60); RED CELL DISTRIBUTION WIDTH 17.1 % (11.0-15.5); WHITE BLOOD COUNT 18.9 X10e3 (4.0-10.5)
[2016-03-18 06:33] LABS: DIFF IND NO
[2016-03-18 08:19] LABS: ALBUMIN SERUM 1.4 g/dL (3.5-5.0); BILIRUBIN,TOTAL 0.3 mg/dL (0.2-2.0); BUN/CREATININE RATIO 21.5; CALCIUM SERUM 7.4 mg/dL (8.4-10.2); GLOM FILT RATE Estimated 35.3 mL/min (>60); MAGNESIUM 1.8 mg/dL (1.6-3.0); PHOSPHOROUS 4.3 mg/dL (2.5-4.6); POTASSIUM 3.5 mmol/L (3.5-5.1); PROTEIN TOTAL SERUM 4.7 g/dL (6.0-8.3)
[2016-03-18 11:13] LABS: ARTERIAL BLD GAS O2 SATURATION 97.9 % (90.0-100.0); ARTERIAL BLOOD GAS ALLEN TEST Y; ARTERIAL BLOOD GAS ART SITE RIGHT RADIAL; ARTERIAL BLOOD GAS CARBOXY HB 0.4 %sat (0.0-9.0); ARTERIAL BLOOD GAS DELIVERY VE; ARTERIAL BLOOD GAS HCO3 26.1 mmol/L; ARTERIAL BLOOD GAS MET HB 0.5 %sat (0.0-2.0); ARTERIAL BLOOD GAS PCO2 42.6 mmHg (35.0-45.0); ARTERIAL BLOOD GAS VENT MODE CPAP; ARTERIAL BLOOD GAS pH 7.396 (7.350-7.450); ARTERIAL DRAW? YES
[2016-03-18 12:49] LABS: ARTERIAL BLOOD GAS PO2 96.1 mmHg (80.0-100); ARTERIAL BLOOD GAS pH 7.344 (7.350-7.450)
[2016-03-18 12:50] LABS: ARTERIAL BLD GAS O2 SATURATION 97.5 % (90.0-100.0); ARTERIAL BLOOD GAS ALLEN TEST Y; ARTERIAL BLOOD GAS ART SITE RIGHT RADIAL; ARTERIAL BLOOD GAS DELIVERY TPIECE; ARTERIAL DRAW? YES
[2016-03-18 16:25] LABS: ARTERIAL BLOOD GAS CARBOXY HB 0.5 %sat (0.0-9.0); ARTERIAL BLOOD GAS HCO3 27.1 mmol/L; ARTERIAL BLOOD GAS MET HB 0.9 %sat (0.0-2.0); ARTERIAL BLOOD GAS PCO2 41.4 mmHg (35.0-45.0); ARTERIAL BLOOD GAS pH 7.424 (7.350-7.450)
[2016-03-18 16:29] LABS: ARTERIAL BLOOD GAS ALLEN TEST Y; ARTERIAL BLOOD GAS ART SITE RIGHT RADIAL; ARTERIAL BLOOD GAS DELIVERY BIPAP; ARTERIAL DRAW? YES
[2016-03-19 04:25] LABS: ARTERIAL BLD GAS O2 SATURATION 98.4 % (90.0-100.0); ARTERIAL BLOOD GAS CARBOXY HB 0.6 %sat (0.0-9.0); ARTERIAL BLOOD GAS MET HB 0.8 %sat (0.0-2.0); ARTERIAL BLOOD GAS PCO2 43.6 mmHg (35.0-45.0)
[2016-03-19 04:31] LABS: ARTERIAL BLOOD GAS ALLEN TEST NORMAL; ARTERIAL BLOOD GAS ART SITE RIGHT RADIAL; ARTERIAL BLOOD GAS DELIVERY BIPAP 16/4; ARTERIAL DRAW? YES
[2016-03-19 05:23] LABS: BASOPHIL# 0.1 X10e3 (0-0.3); BASOPHIL% 0.7 % (0-2.5); EOSINOPHIL# 0.6 X10e3 (0-0.7); EOSINOPHIL% 3.3 % (0.0-7.0); HEMOGLOBIN 9.7 gm/dL (13.0-16.0); LYMPHOCYTE# 1.7 X10e3 (1.0-3.5); LYMPHOCYTE% 8.9 % (17.0-45.0); MEAN CELL VOLUME 87.9 FL (83-96); MEAN CORPUSCULAR HEMOGLOBIN 29.3 PG (28-34); MEAN CORPUSCULAR HGB CONC 33.3 g/dL (30-36); MEAN PLATELET VOLUME 8.4 FL (6.5-11.5); MONOCYTE# 1.6 X10e3 (0-1.0); MONOCYTE% 8.4 % (3.0-12.0); NEUTROPHIL# 15.2 X10e3 (1.5-7.1); NEUTROPHIL% 78.7 % (40-75); PLATELET COUNT 306 X10e3 (140-420); RED CELL DISTRIBUTION WIDTH 16.9 % (11.0-15.5); WHITE BLOOD COUNT 19.3 X10e3 (4.0-10.5)
[2016-03-19 05:32] LABS: DIFF IND YES
[2016-03-19 06:06] LABS: ANISOCYTOSIS SL
[2016-03-19 06:08] LABS: PLATELET ESTIMATE NORMAL (NORMAL)
[2016-03-19 06:16] LABS: ALBUMIN SERUM 1.6 g/dL (3.5-5.0); BILIRUBIN,TOTAL 0.2 mg/dL (0.2-2.0); BUN/CREATININE RATIO 28.88; CALCIUM SERUM 7.9 mg/dL (8.4-10.2); CREATININE SERUM 1.8 mg/dL (0.6-1.4); GLOM FILT RATE Estimated 39.8 mL/min (>60); MAGNESIUM 1.9 mg/dL (1.6-3.0); PHOSPHOROUS 3.2 mg/dL (2.5-4.6); POTASSIUM 3.4 mmol/L (3.5-5.1); PROTEIN TOTAL SERUM 5.2 g/dL (6.0-8.3)
[2016-03-19 18:23] LABS: BUN/CREATININE RATIO 31.17; CALCIUM SERUM 7.8 mg/dL (8.4-10.2); CREATININE SERUM 1.7 mg/dL (0.6-1.4); GLOM FILT RATE Estimated 42.6 mL/min (>60); POTASSIUM 3.5 mmol/L (3.5-5.1)
[2016-03-20 04:26] LABS: ARTERIAL BLD GAS O2 SATURATION 97.1 % (90.0-100.0); ARTERIAL BLOOD GAS CARBOXY HB 0.7 %sat (0.0-9.0); ARTERIAL BLOOD GAS HCO3 33.7 mmol/L; ARTERIAL BLOOD GAS MET HB 0.9 %sat (0.0-2.0); ARTERIAL BLOOD GAS PO2 99.1 mmHg (80.0-100); ARTERIAL BLOOD GAS pH 7.432 (7.350-7.450)
[2016-03-20 04:32] LABS: ARTERIAL BLOOD GAS ALLEN TEST NORMAL; ARTERIAL BLOOD GAS ART SITE RIGHT RADIAL; ARTERIAL BLOOD GAS DELIVERY BIPAP 16/4; ARTERIAL BLOOD GAS PCO2 50.6 mmHg (35.0-45.0); ARTERIAL DRAW? YES
[2016-03-20 05:46] LABS: BASOPHIL# 0.1 X10e3 (0-0.3); BASOPHIL% 0.4 % (0-2.5); EOSINOPHIL# 0.7 X10e3 (0-0.7); EOSINOPHIL% 4.4 % (0.0-7.0); HEMATOCRIT 28.9 % (38.0-50.0); HEMOGLOBIN 9.2 gm/dL (13.0-16.0); LYMPHOCYTE# 1.9 X10e3 (1.0-3.5); LYMPHOCYTE% 11.3 % (17.0-45.0); MEAN CELL VOLUME 89.8 FL (83-96); MEAN CORPUSCULAR HEMOGLOBIN 28.6 PG (28-34); MEAN CORPUSCULAR HGB CONC 31.8 g/dL (30-36); MEAN PLATELET VOLUME 8.4 FL (6.5-11.5); MONOCYTE# 1.5 X10e3 (0-1.0); MONOCYTE% 9.1 % (3.0-12.0); NEUTROPHIL# 12.6 X10e3 (1.5-7.1); NEUTROPHIL% 74.8 % (40-75); PLATELET COUNT 285 X10e3 (140-420); RED BLOOD COUNT 3.22 X10e (3.90-5.60); RED CELL DISTRIBUTION WIDTH 17.1 % (11.0-15.5); WHITE BLOOD COUNT 16.9 X10e3 (4.0-10.5)
[2016-03-20 05:50] LABS: DIFF IND NO
[2016-03-20 06:52] LABS: BILIRUBIN,TOTAL 0.2 mg/dL (0.2-2.0); BUN/CREATININE RATIO 31.76; CALCIUM SERUM 8.1 mg/dL (8.4-10.2); CREATININE SERUM 1.7 mg/dL (0.6-1.4); GLOM FILT RATE Estimated 42.6 mL/min (>60); MAGNESIUM 1.7 mg/dL (1.6-3.0); PHOSPHOROUS 2.7 mg/dL (2.5-4.6); POTASSIUM 3.9 mmol/L (3.5-5.1); PROTEIN TOTAL SERUM 4.8 g/dL (6.0-8.3)
[2016-03-20 07:30] LABS: ARTERIAL BLOOD GAS CARBOXY HB 0.5 %sat (0.0-9.0); ARTERIAL BLOOD GAS HCO3 26.7 mmol/L; ARTERIAL BLOOD GAS MET HB 0.6 %sat (0.0-2.0)
[2016-03-21 04:07] LABS: ARTERIAL BLD GAS O2 SATURATION 94.5 % (90.0-100.0); ARTERIAL BLOOD GAS HCO3 36.6 mmol/L; ARTERIAL BLOOD GAS MET HB 0.7 %sat (0.0-2.0); ARTERIAL BLOOD GAS pH 7.428 (7.350-7.450)
[2016-03-21 04:16] LABS: ARTERIAL BLOOD GAS ALLEN TEST NORMAL; ARTERIAL BLOOD GAS ART SITE LEFT RADIAL; ARTERIAL BLOOD GAS DELIVERY NASAL CANNULA; ARTERIAL BLOOD GAS PCO2 55.4 mmHg (35.0-45.0); ARTERIAL BLOOD GAS PO2 75.8 mmHg (80.0-100); ARTERIAL DRAW? YES
[2016-03-21 06:35] LABS: BASOPHIL# 0.1 X10e3 (0-0.3); BASOPHIL% 0.7 % (0-2.5); EOSINOPHIL# 0.5 X10e3 (0-0.7); EOSINOPHIL% 2.4 % (0.0-7.0); HEMATOCRIT 33.9 % (38.0-50.0); HEMOGLOBIN 10.6 gm/dL (13.0-16.0); LYMPHOCYTE# 1.8 X10e3 (1.0-3.5); LYMPHOCYTE% 9.6 % (17.0-45.0); MEAN CELL VOLUME 90.3 FL (83-96); MEAN CORPUSCULAR HEMOGLOBIN 28.3 PG (28-34); MEAN CORPUSCULAR HGB CONC 31.3 g/dL (30-36); MEAN PLATELET VOLUME 8.4 FL (6.5-11.5); MONOCYTE# 1.6 X10e3 (0-1.0); MONOCYTE% 8.6 % (3.0-12.0); NEUTROPHIL# 14.8 X10e3 (1.5-7.1); NEUTROPHIL% 78.7 % (40-75); PLATELET COUNT 301 X10e3 (140-420); RED BLOOD COUNT 3.75 X10e (3.90-5.60); RED CELL DISTRIBUTION WIDTH 17.3 % (11.0-15.5); WHITE BLOOD COUNT 18.9 X10e3 (4.0-10.5)
[2016-03-21 07:02] LABS: ALBUMIN SERUM 2.1 g/dL (3.5-5.0); BILIRUBIN,TOTAL 0.2 mg/dL (0.2-2.0); CALCIUM SERUM 8.7 mg/dL (8.4-10.2); CREATININE SERUM 1.6 mg/dL (0.6-1.4); GLOM FILT RATE Estimated 45.6 mL/min (>60); MAGNESIUM 1.8 mg/dL (1.6-3.0); PHOSPHOROUS 2.8 mg/dL (2.5-4.6); POTASSIUM 3.5 mmol/L (3.5-5.1); PROTEIN TOTAL SERUM 5.7 g/dL (6.0-8.3)
[2016-03-21 07:03] LABS: DIFF IND NO
[2016-03-22 05:24] LABS: HEMOGLOBIN 9.2 gm/dL (13.0-16.0); MEAN CELL VOLUME 88.5 FL (83-96); MEAN CORPUSCULAR HEMOGLOBIN 28.2 PG (28-34); MEAN CORPUSCULAR HGB CONC 31.8 g/dL (30-36); MEAN PLATELET VOLUME 7.7 FL (6.5-11.5); RED BLOOD COUNT 3.27 X10e (3.90-5.60); RED CELL DISTRIBUTION WIDTH 17.1 % (11.0-15.5); WHITE BLOOD COUNT 18.6 X10e3 (4.0-10.5)
[2016-03-22 06:10] LABS: BUN/CREATININE RATIO 41.42; CALCIUM SERUM 8.1 mg/dL (8.4-10.2); CREATININE SERUM 1.4 mg/dL (0.6-1.4); GLOM FILT RATE Estimated 53.2 mL/min (>60); MAGNESIUM 1.6 mg/dL (1.6-3.0); PHOSPHOROUS 2.7 mg/dL (2.5-4.6); POTASSIUM 3.4 mmol/L (3.5-5.1)
[2016-03-23 08:31] LABS: HEMATOCRIT 31.6 % (38.0-50.0); HEMOGLOBIN 10.2 gm/dL (13.0-16.0); MEAN CELL VOLUME 88.6 FL (83-96); MEAN CORPUSCULAR HEMOGLOBIN 28.6 PG (28-34); MEAN CORPUSCULAR HGB CONC 32.3 g/dL (30-36); MEAN PLATELET VOLUME 8.3 FL (6.5-11.5); RED BLOOD COUNT 3.56 X10e (3.90-5.60); RED CELL DISTRIBUTION WIDTH 17.1 % (11.0-15.5); WHITE BLOOD COUNT 22.1 X10e3 (4.0-10.5)
[2016-03-23 08:50] LABS: BUN/CREATININE RATIO 43.84; CALCIUM SERUM 7.7 mg/dL (8.4-10.2); CREATININE SERUM 1.3 mg/dL (0.6-1.4); MAGNESIUM 1.8 mg/dL (1.6-3.0)
[2016-03-24 08:09] LABS: BASOPHIL# 0.1 X10e3 (0-0.3); BASOPHIL% 0.5 % (0-2.5); DIFF IND YES; EOSINOPHIL# 0.6 X10e3 (0-0.7); EOSINOPHIL% 3.2 % (0.0-7.0); HEMATOCRIT 28.5 % (38.0-50.0); HEMOGLOBIN 9.3 gm/dL (13.0-16.0); LYMPHOCYTE# 3.1 X10e3 (1.0-3.5); LYMPHOCYTE% 16.8 % (17.0-45.0); MEAN CELL VOLUME 88.1 FL (83-96); MEAN CORPUSCULAR HEMOGLOBIN 28.7 PG (28-34); MEAN CORPUSCULAR HGB CONC 32.6 g/dL (30-36); MEAN PLATELET VOLUME 8.1 FL (6.5-11.5); MONOCYTE# 1.9 X10e3 (0-1.0); NEUTROPHIL# 12.9 X10e3 (1.5-7.1); NEUTROPHIL% 69.5 % (40-75); PLATELET COUNT 295 X10e3 (140-420); RED BLOOD COUNT 3.24 X10e (3.90-5.60); RED CELL DISTRIBUTION WIDTH 17.1 % (11.0-15.5); WHITE BLOOD COUNT 18.6 X10e3 (4.0-10.5)
[2016-03-24 08:25] LABS: ANISOCYTOSIS SL; PLATELET ESTIMATE NORMAL (NORMAL)
[2016-03-24 08:44] LABS: BUN/CREATININE RATIO 42.85; CALCIUM SERUM 7.8 mg/dL (8.4-10.2); CREATININE SERUM 1.4 mg/dL (0.6-1.4); GLOM FILT RATE Estimated 53.2 mL/min (>60); MAGNESIUM 1.7 mg/dL (1.6-3.0); POTASSIUM 3.8 mmol/L (3.5-5.1)
[2016-03-25 07:06] LABS: HEMATOCRIT 26.9 % (38.0-50.0); HEMOGLOBIN 8.9 gm/dL (13.0-16.0); MEAN CELL VOLUME 88.4 FL (83-96); MEAN CORPUSCULAR HEMOGLOBIN 29.3 PG (28-34); MEAN CORPUSCULAR HGB CONC 33.1 g/dL (30-36); MEAN PLATELET VOLUME 8.5 FL (6.5-11.5); RED BLOOD COUNT 3.05 X10e (3.90-5.60); RED CELL DISTRIBUTION WIDTH 17.6 % (11.0-15.5); WHITE BLOOD COUNT 18.7 X10e3 (4.0-10.5)
[2016-03-25 07:49] LABS: ALBUMIN SERUM 1.6 g/dL (3.5-5.0); BILIRUBIN,TOTAL 0.5 mg/dL (0.2-2.0); BUN/CREATININE RATIO 40.66; CALCIUM SERUM 7.7 mg/dL (8.4-10.2); CREATININE SERUM 1.5 mg/dL (0.6-1.4); GLOM FILT RATE Estimated 49.2 mL/min (>60); MAGNESIUM 1.9 mg/dL (1.6-3.0); PHOSPHOROUS 3.3 mg/dL (2.5-4.6); POTASSIUM 4.6 mmol/L (3.5-5.1); PROTEIN TOTAL SERUM 4.9 g/dL (6.0-8.3)
[2016-03-26 06:46] LABS: HEMOGLOBIN 9.3 gm/dL (13.0-16.0); MEAN CELL VOLUME 88.7 FL (83-96); MEAN CORPUSCULAR HEMOGLOBIN 28.5 PG (28-34); MEAN CORPUSCULAR HGB CONC 32.1 g/dL (30-36); MEAN PLATELET VOLUME 8.7 FL (6.5-11.5); RED BLOOD COUNT 3.27 X10e (3.90-5.60); RED CELL DISTRIBUTION WIDTH 16.4 % (11.0-15.5); WHITE BLOOD COUNT 23.6 X10e3 (4.0-10.5)
[2016-03-26 07:12] LABS: CALCIUM SERUM 7.4 mg/dL (8.4-10.2); CREATININE SERUM 1.5 mg/dL (0.6-1.4); GLOM FILT RATE Estimated 49.2 mL/min (>60); POTASSIUM 4.8 mmol/L (3.5-5.1)
[2016-03-27 06:24] LABS: BASOPHIL# 0.2 X10e3 (0-0.3); BASOPHIL% 0.8 % (0-2.5); EOSINOPHIL# 0.4 X10e3 (0-0.7); EOSINOPHIL% 1.9 % (0.0-7.0); HEMATOCRIT 24.7 % (38.0-50.0); HEMOGLOBIN 8.1 gm/dL (13.0-16.0); LYMPHOCYTE# 2.4 X10e3 (1.0-3.5); MEAN CELL VOLUME 88.7 FL (83-96); MEAN CORPUSCULAR HGB CONC 32.6 g/dL (30-36); MEAN PLATELET VOLUME 8.2 FL (6.5-11.5); MONOCYTE# 2.2 X10e3 (0-1.0); NEUTROPHIL# 16.4 X10e3 (1.5-7.1); NEUTROPHIL% 76.3 % (40-75); PLATELET COUNT 291 X10e3 (140-420); RED BLOOD COUNT 2.78 X10e (3.90-5.60); RED CELL DISTRIBUTION WIDTH 16.5 % (11.0-15.5); WHITE BLOOD COUNT 21.5 X10e3 (4.0-10.5)
[2016-03-27 06:31] LABS: DIFF IND YES
[2016-03-27 06:51] LABS: BUN/CREATININE RATIO 42.3; CALCIUM SERUM 7.4 mg/dL (8.4-10.2); CREATININE SERUM 1.3 mg/dL (0.6-1.4); POTASSIUM 5.1 mmol/L (3.5-5.1)
[2016-03-27 07:29] LABS: ANISOCYTOSIS SL; PLATELET ESTIMATE NORMAL (NORMAL); RBC NORMAL YES
[2016-03-28 10:23] LABS: HEMATOCRIT 27.7 % (38.0-50.0); HEMOGLOBIN 8.9 gm/dL (13.0-16.0); MEAN CELL VOLUME 89.2 FL (83-96); MEAN CORPUSCULAR HEMOGLOBIN 28.7 PG (28-34); MEAN CORPUSCULAR HGB CONC 32.2 g/dL (30-36); MEAN PLATELET VOLUME 7.9 FL (6.5-11.5); RED BLOOD COUNT 3.11 X10e (3.90-5.60); RED CELL DISTRIBUTION WIDTH 16.7 % (11.0-15.5); WHITE BLOOD COUNT 20.4 X10e3 (4.0-10.5)
[2016-03-28 10:50] LABS: BUN/CREATININE RATIO 35.38; CALCIUM SERUM 7.9 mg/dL (8.4-10.2); CREATININE SERUM 1.3 mg/dL (0.6-1.4); MAGNESIUM 1.7 mg/dL (1.6-3.0); PHOSPHOROUS 3.7 mg/dL (2.5-4.6); POTASSIUM 4.9 mmol/L (3.5-5.1)
[2016-03-29 07:08] LABS: HEMATOCRIT 25.3 % (38.0-50.0); HEMOGLOBIN 8.2 gm/dL (13.0-16.0); MEAN CELL VOLUME 87.9 FL (83-96); MEAN CORPUSCULAR HEMOGLOBIN 28.5 PG (28-34); MEAN CORPUSCULAR HGB CONC 32.4 g/dL (30-36); RED BLOOD COUNT 2.87 X10e (3.90-5.60); RED CELL DISTRIBUTION WIDTH 15.9 % (11.0-15.5); WHITE BLOOD COUNT 17.7 X10e3 (4.0-10.5)
[2016-03-29 08:09] LABS: BUN/CREATININE RATIO 33.33; CALCIUM SERUM 7.9 mg/dL (8.4-10.2); CREATININE SERUM 1.5 mg/dL (0.6-1.4); GLOM FILT RATE Estimated 49.2 mL/min (>60)
[2016-03-30 05:20] LABS: BASOPHIL# 0.2 X10e3 (0-0.3); BASOPHIL% 1.3 % (0-2.5); EOSINOPHIL# 0.2 X10e3 (0-0.7); EOSINOPHIL% 0.9 % (0.0-7.0); HEMATOCRIT 25.3 % (38.0-50.0); HEMOGLOBIN 8.2 gm/dL (13.0-16.0); LYMPHOCYTE# 2.3 X10e3 (1.0-3.5); LYMPHOCYTE% 12.4 % (17.0-45.0); MEAN CELL VOLUME 88.1 FL (83-96); MEAN CORPUSCULAR HEMOGLOBIN 28.7 PG (28-34); MEAN CORPUSCULAR HGB CONC 32.5 g/dL (30-36); MEAN PLATELET VOLUME 8.6 FL (6.5-11.5); MONOCYTE# 1.8 X10e3 (0-1.0); MONOCYTE% 9.7 % (3.0-12.0); NEUTROPHIL# 14.3 X10e3 (1.5-7.1); NEUTROPHIL% 75.7 % (40-75); PLATELET COUNT 373 X10e3 (140-420); RED BLOOD COUNT 2.87 X10e (3.90-5.60); RED CELL DISTRIBUTION WIDTH 16.1 % (11.0-15.5); WHITE BLOOD COUNT 18.8 X10e3 (4.0-10.5)
[2016-03-30 05:21] LABS: DIFF IND NO
[2016-03-30 06:36] LABS: CALCIUM SERUM 7.8 mg/dL (8.4-10.2); CREATININE SERUM 1.5 mg/dL (0.6-1.4); GLOM FILT RATE Estimated 49.2 mL/min (>60); POTASSIUM 4.9 mmol/L (3.5-5.1)
[2016-03-31 05:46] LABS: BASOPHIL# 0.2 X10e3 (0-0.3); BASOPHIL% 1.1 % (0-2.5); EOSINOPHIL# 0.6 X10e3 (0-0.7); EOSINOPHIL% 4.4 % (0.0-7.0); HEMATOCRIT 24.3 % (38.0-50.0); LYMPHOCYTE# 2.2 X10e3 (1.0-3.5); LYMPHOCYTE% 14.9 % (17.0-45.0); MEAN CELL VOLUME 88.2 FL (83-96); MEAN CORPUSCULAR HEMOGLOBIN 28.9 PG (28-34); MEAN CORPUSCULAR HGB CONC 32.8 g/dL (30-36); MEAN PLATELET VOLUME 8.4 FL (6.5-11.5); MONOCYTE# 1.3 X10e3 (0-1.0); MONOCYTE% 8.7 % (3.0-12.0); NEUTROPHIL# 10.3 X10e3 (1.5-7.1); NEUTROPHIL% 70.9 % (40-75); PLATELET COUNT 344 X10e3 (140-420); RED BLOOD COUNT 2.75 X10e (3.90-5.60); RED CELL DISTRIBUTION WIDTH 15.7 % (11.0-15.5); WHITE BLOOD COUNT 14.6 X10e3 (4.0-10.5)
[2016-03-31 05:48] LABS: DIFF IND NO
[2016-03-31 06:34] LABS: BUN/CREATININE RATIO 35.71; CALCIUM SERUM 7.9 mg/dL (8.4-10.2); CREATININE SERUM 1.4 mg/dL (0.6-1.4); GLOM FILT RATE Estimated 53.2 mL/min (>60); POTASSIUM 4.6 mmol/L (3.5-5.1)
[2016-04-02 07:26] LABS: HEMATOCRIT 23.7 % (38.0-50.0); HEMOGLOBIN 7.7 gm/dL (13.0-16.0); MEAN CELL VOLUME 88.2 FL (83-96); MEAN CORPUSCULAR HEMOGLOBIN 28.5 PG (28-34); MEAN CORPUSCULAR HGB CONC 32.3 g/dL (30-36); MEAN PLATELET VOLUME 8.7 FL (6.5-11.5); RED BLOOD COUNT 2.69 X10e (3.90-5.60); RED CELL DISTRIBUTION WIDTH 15.7 % (11.0-15.5)
[2016-04-02 07:46] LABS: CALCIUM SERUM 7.6 mg/dL (8.4-10.2); CREATININE SERUM 1.5 mg/dL (0.6-1.4); GLOM FILT RATE Estimated 49.2 mL/min (>60); POTASSIUM 4.5 mmol/L (3.5-5.1)
[2016-04-03 05:48] LABS: HEMATOCRIT 23.8 % (38.0-50.0); HEMOGLOBIN 7.7 gm/dL (13.0-16.0); MEAN CELL VOLUME 88.1 FL (83-96); MEAN CORPUSCULAR HEMOGLOBIN 28.4 PG (28-34); MEAN CORPUSCULAR HGB CONC 32.2 g/dL (30-36); MEAN PLATELET VOLUME 8.4 FL (6.5-11.5); RED BLOOD COUNT 2.7 X10e (3.90-5.60); RED CELL DISTRIBUTION WIDTH 16.1 % (11.0-15.5); WHITE BLOOD COUNT 13.6 X10e3 (4.0-10.5)
[2016-04-03 06:59] LABS: BUN/CREATININE RATIO 35.33; CREATININE SERUM 1.5 mg/dL (0.6-1.4); GLOM FILT RATE Estimated 49.2 mL/min (>60)
[2016-04-04 06:12] LABS: HEMATOCRIT 22.8 % (38.0-50.0); HEMOGLOBIN 7.4 gm/dL (13.0-16.0); MEAN CELL VOLUME 87.2 FL (83-96); MEAN CORPUSCULAR HEMOGLOBIN 28.2 PG (28-34); MEAN CORPUSCULAR HGB CONC 32.3 g/dL (30-36); MEAN PLATELET VOLUME 8.2 FL (6.5-11.5); RED BLOOD COUNT 2.61 X10e (3.90-5.60); RED CELL DISTRIBUTION WIDTH 15.7 % (11.0-15.5); WHITE BLOOD COUNT 13.7 X10e3 (4.0-10.5)
[2016-04-04 06:53] LABS: BUN/CREATININE RATIO 42.14; CALCIUM SERUM 7.9 mg/dL (8.4-10.2); CREATININE SERUM 1.4 mg/dL (0.6-1.4); GLOM FILT RATE Estimated 53.2 mL/min (>60); POTASSIUM 4.6 mmol/L (3.5-5.1)
[2016-04-05 05:27] LABS: HEMOGLOBIN 7.1 gm/dL (13.0-16.0); MEAN CELL VOLUME 87.1 FL (83-96); MEAN CORPUSCULAR HGB CONC 32.2 g/dL (30-36); MEAN PLATELET VOLUME 7.9 FL (6.5-11.5); RED BLOOD COUNT 2.53 X10e (3.90-5.60); WHITE BLOOD COUNT 13.1 X10e3 (4.0-10.5)
[2016-04-05 05:53] LABS: BUN/CREATININE RATIO 39.37; CALCIUM SERUM 7.6 mg/dL (8.4-10.2); CREATININE SERUM 1.6 mg/dL (0.6-1.4); GLOM FILT RATE Estimated 45.6 mL/min (>60); POTASSIUM 4.7 mmol/L (3.5-5.1)
[2016-04-06 05:36] LABS: HEMATOCRIT 21.8 % (38.0-50.0); HEMOGLOBIN 7.1 gm/dL (13.0-16.0); MEAN CELL VOLUME 86.8 FL (83-96); MEAN CORPUSCULAR HEMOGLOBIN 28.4 PG (28-34); MEAN CORPUSCULAR HGB CONC 32.7 g/dL (30-36); MEAN PLATELET VOLUME 7.9 FL (6.5-11.5); RED BLOOD COUNT 2.51 X10e (3.90-5.60); RED CELL DISTRIBUTION WIDTH 15.6 % (11.0-15.5); WHITE BLOOD COUNT 14.4 X10e3 (4.0-10.5)
[2016-04-06 06:25] LABS: BUN/CREATININE RATIO 38.82; CALCIUM SERUM 7.8 mg/dL (8.4-10.2); CREATININE SERUM 1.7 mg/dL (0.6-1.4); GLOM FILT RATE Estimated 42.6 mL/min (>60); POTASSIUM 5.2 mmol/L (3.5-5.1)
[2016-04-06 22:42] LABS: URINE APPEARANCE CLOUDY; URINE BILIRUBIN NEG (NEG); URINE BLOOD 3+ (NEG); URINE COLOR YELLOW; URINE GLUCOSE NEG (NEG); URINE KETONE NEG (NEG); URINE LEUKOCYTE ESTERASE 2+ (NEG); URINE NITRATE NEG (NEG); URINE PH 5.5 (5-8); URINE PROTEIN 1+ (NEG); URINE SPECIFIC GRAVITY 1.017 (1.003-1.035); URINE UROBILINOGEN 0.2 MG/DL (NEG)
[2016-04-06 22:45] LABS: URBCS1 AUWI 100-200 /[HPF] (0-2); URINE BACTERIA AUWI NEG (NEGATIVE); URINE SQUAMOUS EPITHELIAL CELL NONE SEEN /[HPF]; UWBCS1 AUWI 100-200 (0-5)
[2016-04-06 22:58] LABS: URINE YEAST PRESENT
[2016-04-07 08:32] LABS: BUN/CREATININE RATIO 40.58; CALCIUM SERUM 8.1 mg/dL (8.4-10.2); CREATININE SERUM 1.7 mg/dL (0.6-1.4); GLOM FILT RATE Estimated 42.6 mL/min (>60)
[2016-04-07 08:41] LABS: POTASSIUM 5.5 mmol/L (3.5-5.1)
[2016-04-07 10:09] LABS: HEMATOCRIT 21.6 % (38.0-50.0); MEAN CELL VOLUME 86.9 FL (83-96); MEAN CORPUSCULAR HEMOGLOBIN 28.1 PG (28-34); MEAN CORPUSCULAR HGB CONC 32.3 g/dL (30-36); MEAN PLATELET VOLUME 7.6 FL (6.5-11.5); RED BLOOD COUNT 2.48 X10e (3.90-5.60); RED CELL DISTRIBUTION WIDTH 15.9 % (11.0-15.5); WHITE BLOOD COUNT 15.8 X10e3 (4.0-10.5)
[2016-04-08 05:43] LABS: HEMATOCRIT 25.1 % (38.0-50.0); HEMOGLOBIN 8.3 gm/dL (13.0-16.0); MEAN CELL VOLUME 87.3 FL (83-96); MEAN CORPUSCULAR HEMOGLOBIN 28.9 PG (28-34); MEAN CORPUSCULAR HGB CONC 33.1 g/dL (30-36); MEAN PLATELET VOLUME 7.9 FL (6.5-11.5); RED BLOOD COUNT 2.88 X10e (3.90-5.60); RED CELL DISTRIBUTION WIDTH 15.8 % (11.0-15.5); WHITE BLOOD COUNT 14.8 X10e3 (4.0-10.5)
[2016-04-08 06:35] LABS: BUN/CREATININE RATIO 41.87; CREATININE SERUM 1.6 mg/dL (0.6-1.4); GLOM FILT RATE Estimated 45.6 mL/min (>60); POTASSIUM 4.8 mmol/L (3.5-5.1)
[2016-04-09 06:24] LABS: HEMATOCRIT 27.3 % (38.0-50.0); HEMOGLOBIN 8.8 gm/dL (13.0-16.0); MEAN CELL VOLUME 87.2 FL (83-96); MEAN CORPUSCULAR HGB CONC 32.1 g/dL (30-36); MEAN PLATELET VOLUME 7.7 FL (6.5-11.5); RED BLOOD COUNT 3.13 X10e (3.90-5.60); RED CELL DISTRIBUTION WIDTH 15.8 % (11.0-15.5); WHITE BLOOD COUNT 14.8 X10e3 (4.0-10.5)
[2016-04-09 07:39] LABS: ALBUMIN SERUM 1.4 g/dL (3.5-5.0); BILIRUBIN,TOTAL 0.6 mg/dL (0.2-2.0); BUN/CREATININE RATIO 38.66; CALCIUM SERUM 7.7 mg/dL (8.4-10.2); CREATININE SERUM 1.5 mg/dL (0.6-1.4); GLOM FILT RATE Estimated 49.2 mL/min (>60); POTASSIUM 4.6 mmol/L (3.5-5.1); PROTEIN TOTAL SERUM 6.2 g/dL (6.0-8.3)
[2016-04-10 06:30] LABS: HEMATOCRIT 25.6 % (38.0-50.0); HEMOGLOBIN 8.3 gm/dL (13.0-16.0); MEAN CELL VOLUME 87.6 FL (83-96); MEAN CORPUSCULAR HEMOGLOBIN 28.3 PG (28-34); MEAN CORPUSCULAR HGB CONC 32.3 g/dL (30-36); MEAN PLATELET VOLUME 7.6 FL (6.5-11.5); RED BLOOD COUNT 2.92 X10e (3.90-5.60); RED CELL DISTRIBUTION WIDTH 15.9 % (11.0-15.5); WHITE BLOOD COUNT 12.7 X10e3 (4.0-10.5)
[2016-04-10 07:03] LABS: BUN/CREATININE RATIO 37.33; CALCIUM SERUM 7.8 mg/dL (8.4-10.2); CREATININE SERUM 1.5 mg/dL (0.6-1.4); GLOM FILT RATE Estimated 49.2 mL/min (>60); POTASSIUM 4.8 mmol/L (3.5-5.1)
[2016-04-10 11:15] LABS: URINE APPEARANCE CLOUDY; URINE BILIRUBIN NEG (NEG); URINE BLOOD 3+ (NEG); URINE COLOR YELLOW; URINE GLUCOSE NEG (NEG); URINE KETONE NEG (NEG); URINE LEUKOCYTE ESTERASE 2+ (NEG); URINE NITRATE NEG (NEG); URINE PROTEIN 1+ (NEG); URINE UROBILINOGEN 0.2 MG/DL (NEG)
[2016-04-10 11:18] LABS: URINE BACTERIA AUWI NEG (NEGATIVE); URINE SQUAMOUS EPITHELIAL CELL NONE SEEN /[HPF]
[2016-04-10 11:31] LABS: UWBCS1 AUWI 50-100 (0-5)
[2016-04-10 11:34] LABS: URBCS1 AUWI 50-100 /[HPF] (0-2)
[2016-04-10 11:35] LABS: URINE GRANULAR CAST 0-2 /[HPF]; URINE YEAST PRESENT
[2016-04-11 05:17] LABS: HEMATOCRIT 25.2 % (38.0-50.0); HEMOGLOBIN 8.1 gm/dL (13.0-16.0); MEAN CELL VOLUME 88.2 FL (83-96); MEAN CORPUSCULAR HEMOGLOBIN 28.4 PG (28-34); MEAN CORPUSCULAR HGB CONC 32.3 g/dL (30-36); MEAN PLATELET VOLUME 7.4 FL (6.5-11.5); RED BLOOD COUNT 2.86 X10e (3.90-5.60); RED CELL DISTRIBUTION WIDTH 16.1 % (11.0-15.5); WHITE BLOOD COUNT 12.8 X10e3 (4.0-10.5)
[2016-04-11 06:19] LABS: BUN/CREATININE RATIO 38.57; CALCIUM SERUM 7.8 mg/dL (8.4-10.2); CREATININE SERUM 1.4 mg/dL (0.6-1.4); GLOM FILT RATE Estimated 53.2 mL/min (>60)
[2016-04-11 06:22] LABS: POTASSIUM 5.5 mmol/L (3.5-5.1)
== END 2016-04-12 20:35 | DRG 579 ==
LOC: CED 06:30 → CEDOF 10:40 → C3A PCU 20:39 → CICCU3 03-13 18:45 → C5B 03-20 14:37 → C2A 04-07 11:18
PROVIDERS: Emergency Medicine; Family Medicine; Internal Medicine; Internal Medicine Cardiovascular Disease; Internal Medicine Nephrology; Orthopaedic Surgery; Specialist; Surgery
PROC: 30233L1 Transfusion of Nonautologous Fresh Plasma into Peripheral Vein, Percutaneous Approach (ICD-10-PCS; 2016-03-11)
PROC: 30233K1 Transfusion of Nonautologous Frozen Plasma into Peripheral Vein, Percutaneous Approach (ICD-10-PCS; 2016-03-11)
PROC: 0KBN0ZZ Excision of Right Hip Muscle, Open Approach (ICD-10-PCS; 2016-03-13)
PROC: 0D1N0Z4 Bypass Sigmoid Colon to Cutaneous, Open Approach (ICD-10-PCS; 2016-03-13)
PROC: 30233N1 Transfusion of Nonautologous Red Blood Cells into Peripheral Vein, Percutaneous Approach (ICD-10-PCS; 2016-03-13)
PROC: 5A1955Z Respiratory Ventilation, Greater than 96 Consecutive Hours (ICD-10-PCS; 2016-03-13 15:30)
PROC: 02HV33Z Insertion of Infusion Device into Superior Vena Cava, Percutaneous Approach (ICD-10-PCS; 2016-03-15)
PROC: 02HV33Z Insertion of Infusion Device into Superior Vena Cava, Percutaneous Approach (ICD-10-PCS; 2016-03-24)
PROC: 4A02X4A Measurement of Cardiac Electrical Activity, Guidance, External Approach (ICD-10-PCS; 2016-03-24)
PROC: 0KBN0ZZ Excision of Right Hip Muscle, Open Approach (ICD-10-PCS; principal; 2016-03-25 14:30)
PROC: B24BYZZ Ultrasonography of Heart with Aorta using Other Contrast (ICD-10-PCS; 2016-04-04)
DX: L89.154 Pressure ulcer of sacral region, stage 4 (principal); J18.9 Pneumonia, unspecified organism; J95.821 Acute postprocedural respiratory failure; A41.52 Sepsis due to Pseudomonas; E43 Unspecified severe protein-calorie malnutrition; I50.33 Acute on chronic diastolic (congestive) heart failure; N17.9 Acute kidney failure, unspecified; I47.2 Ventricular tachycardia; E11.22 Type 2 diabetes mellitus with diabetic chronic kidney disease; N18.3 Chronic kidney disease, stage 3 (moderate); D62 Acute posthemorrhagic anemia; F03.90 Unspecified dementia, unspecified severity, without behavioral disturbance, psychotic disturbance, mood disturbance, and anxiety; F05 Delirium due to known physiological condition; T81.12XA Postprocedural septic shock, initial encounter; I82.622 Acute embolism and thrombosis of deep veins of left upper extremity; J98.11 Atelectasis; I13.0 Hypertensive heart and chronic kidney disease with heart failure and stage 1 through stage 4 chronic kidney disease, or unspecified chronic kidney disease; T81.4XXA Infection following a procedure, initial encounter; E87.0 Hyperosmolality and hypernatremia; B37.49 Other urogenital candidiasis; I48.0 Paroxysmal atrial fibrillation; D72.829 Elevated white blood cell count, unspecified; I25.10 Atherosclerotic heart disease of native coronary artery without angina pectoris; Z95.1 Presence of aortocoronary bypass graft; I73.9 Peripheral vascular disease, unspecified; E03.9 Hypothyroidism, unspecified; G47.33 Obstructive sleep apnea (adult) (pediatric); Z91.19 Patient's noncompliance with other medical treatment and regimen; N40.0 Benign prostatic hyperplasia without lower urinary tract symptoms; Z79.84 Long term (current) use of oral hypoglycemic drugs; M62.3 Immobility syndrome (paraplegic); Z79.01 Long term (current) use of anticoagulants; Z98.49 Cataract extraction status, unspecified eye; Z89.512 Acquired absence of left leg below knee; Z88.2 Allergy status to sulfonamides; Z87.891 Personal history of nicotine dependence; Y83.9 Surgical procedure, unspecified as the cause of abnormal reaction of the patient, or of later complication, without mention of misadventure at the time of the procedure; D50.9 Iron deficiency anemia, unspecified; D18.1 Lymphangioma, any site; E66.01 Morbid (severe) obesity due to excess calories; E87.6 Hypokalemia; Z66 Do not resuscitate; Z51.5 Encounter for palliative care; Z68.38 Body mass index [BMI] 38.0-38.9, adult; E87.5 Hyperkalemia
CPT/HCPCS: 36415; 36600; 70450; 71010; 74000; 80048; 80053; 80061; 80076; 81003; 82550; 82553; 82607; 82728; 82746; 82803; 82947; 83036; 83540; 83550; 83735; 83880; 84100; 84132; 84134; 84300; 84439; 84443; 84481; 84484; 85014; 85018; 85025; 85027; 85610; 85730; 86850; 86900; 86901; 86923; 87040; 87070; 87077; 87086; 87088; 87186; 87205; 88304; 89190; 92526; 92610; 93005; 93306; 94002; 94003; 94010; 94640; 94660; 94760; 94761; 99285; C9113; G8996-GN; G8997-GN; G8998-GN; J0290; J1170; J1630; J1650; J1815; J1940; J1956; J2060; J2185; J2250; J2270; J2370; J2405; J2543; J2550; J2765; J2916; J2997; J3010; J3370; J3430; J3475; J3490; P9016; P9047; P9059